=== PATIENT | female | born 1975 | race African-American/Black ===

== ENCOUNTER 2023-02-13 17:10 | Observation (INO) | payer MEDICAID, SELFPAY ==
[2023-02-13] VITALS (11 sets, daily range): BP systolic 139–173; BP diastolic 87–99; PULSE 74–94; RESP 16–20; TEMP 36.1–36.8; O2SAT 99–100; BMI 38.6
--- NOTE | ~2023-02-13 | CT_ITS ---
EXAMINATION: CT chest abdomen pelvis w con DATE: 02/13/2023 22:55 INDICATION: Chest pain. TECHNIQUE: Computed tomography (CT) of the chest, abdomen, and pelvis was performed with 100 mL Omnip aque 350 intravenous contrast. Automated exposure control and iterative reconstruction technique were employed. The dose-length product was 1216.46 mGy-cm. COMPARISON: None FINDINGS: CHEST CT: The lungs demonstrate mild atelectasis. No pleural effusion. The heart size is normal. There are ashley nary artery calcifications. No pericardial effusion. There is an 8 mm nodule in the thyroid, likely n ot clinically significant. There is mild thoracic spondylosis. ABDOMEN/PELVIS CT: The liver is normal. There are wall calcifications of the gallbladder, which is normal in size. The s pleen, pancreas, and adrenal glands are normal. There is cortical thinning of the kidneys. There is a n 8 mm cyst in left kidney. There is an intrauterine device in expected position. There are no dilate d loops of bowel. The appendix is normal. Aortic atherosclerosis is noted. There are no pathologicall y enlarged lymph nodes. There is no free intraperitoneal fluid. There is mild lumbar spondylosis. IMPRESSION: 1. Porcelain gallbladder. Reviewed, dictated and finalized at location A. IMPRESSION: 1. Porcelain gallbladder.
--- NOTE | ~2023-02-13 | XR_ITS ---
EXAMINATION: XR chest 2V DATE: 02/13/2023 17:44 INDICATION: Chest pain. Shortness of breath. TECHNIQUE: Frontal and lateral views of the chest were obtained. COMPARISON: Chest 2 views 11/09/2016 FINDINGS: The chest demonstrates clear lungs without pneumonia, pleural effusion, or pneumothorax. Th e heart size is normal. IMPRESSION: 1. No acute cardiopulmonary disease. Reviewed, dictated and finalized at location E.
--- NOTE | 2023-02-13 17:11 | ECG_ITS ---
Measurements Intervals [place] Rate: 86 P: 48 [place]: 131 QRS: 42 QRSD: 76 T: 132 QT: 352 QTc: 422 Interpretive Statements SINUS RHYTHM LEFT ATRIAL ENLARGEMENT MODERATE T-WAVE ABNORMALITY, CONSIDER LATERAL ISCHEMIA ABNORMAL ECG NO PREVIOUS ECG AVAILABLE FOR COMPARISON Electronically Signed On 02-14-2023 15:33:52 CDT by Caleb Woods M.D.
[2023-02-13 18:02] LABS: Basophils Absolute Auto 0.1 K/mm3 (0.0-0.1); Basophils Percent Auto 0.7 % (0.2-1.2); Eosinophils Absolute Auto 0.1 K/mm3 (0-0.3); Hematocrit 37.4 % (37.0-47.0); Hemoglobin 12.7 g/dL (12.0-15.0); Immature Granulocyte Absolute 0.01 K/mm3 (0.00-0.031); Immature Granulocyte Percent A 0.1 % (0-0.5); Lymphocytes Absolute Auto 2.19 K/mm3 (0.9-3.2); Lymphocytes Percent Auto 30.6 % (18.3-44.2); Mean Corpuscular Hemoglobin 34.2 pg (26-34); Mean Corpuscular Volume 100.8 fl (80-100); Mean Platelet Volume 9.8 fl (7.4-10.4); Monocytes Absolute Auto 0.4 K/mm3 (0.1-0.6); Neutrophils Absolute Auto 4.4 K/mm3 (1.3-6.7); Neutrophils Percent Auto 61.6 % (45.5-73.1); Platelet Count Result 333 k/mm3 (150-375); Red Blood Count 3.71 M/mm3 (4.2-5.4); Red Cell Distribution Width 13.2 % (11.5-14.5); White Blood Count 7.2 K/mm3 (4.5-10.0)
--- NOTE | 2023-02-13 18:02 | ED.CHESTPAIN ---
HPI - Chest Pain General Chief Complaint: Chest Pain <Loulou Estrada PA-C - Last Filed: 02/13/23 19:52> Stated Complaint: chest pain <Loulou Estrada PA-C - Last Filed: 02/13/23 19:52> Time Seen by Provider: 02/13/23 17:32 <Loulou Estrada PA-C - Last Filed: 02/13/23 19:52> History of Present Illness HPI narrative: 47-year-old female with a history of NM, TIA, hypertension, atrial fibrillation chronically anticoagulated with dabigatran, valvulopathy reports for evaluation for chest pain since yesterday. Patient reports the chest pain is sharp in nature overlying her left chest wall and intermittent. Reports it lasts approximately 1 minute and then spontaneously resolves, then occurs again in 3 minutes. Reports at times it radiates to her left jaw and is associated with nausea. Last night reports she had diaphoresis with chest pain. She denies aggravating or alleviating factors. Denies cough, congestion, headache or dizziness, focal numbness or weakness, lower extremity edema. Denies history of stents or CABG. States that her chest wall hurts worse when you push on it, but this is how she presented when she had her past NM. States her brother at the age of 27 from an NM. Reports she was hospitalized in November for a CHF exacerbation. She is currently traveling from [place]. She has been taking Tylenol without relief. <Loulou Estrada PA-C - Last Filed: 02/13/23 19:52> Related Data Home Medications: Home Medications Medication Instructions Recorded Confirmed albuterol sulfate 90 mcg/actuation 2 puff inhalation QID PRN 02/13/23 02/13/23 aerosol inhaler Shortness Of Breath Or Wheezing carvedilol 25 mg tablet (Coreg) 25 mg PO BID 02/13/23 02/13/23 dabigatran etexilate 150 mg 150 mg PO BID 02/13/23 02/13/23 capsule (Pradaxa) diltiazem HCl 240 mg 240 mg PO DAILY 02/13/23 02/13/23 capsule,extended release 24 hr ergocalciferol (vitamin D2) 50,000 50,000 unit PO WEEKLY 02/13/23 02/13/23 unit tablet escitalopram oxalate 20 mg tablet 20 mg PO DAILY 02/13/23 02/13/23 furosemide 40 mg tablet (Lasix) 40 mg PO DAILY 02/13/23 02/13/23 gabapentin 300 mg capsule 300 mg PO BID 02/13/23 02/13/23 lamotrigine 100 mg tablet 300 mg PO DAILY 02/13/23 02/13/23 (Lamictal) lorazepam 0.5 mg tablet 0.5 mg PO TID PRN Anxiety 02/13/23 02/13/23 olmesartan 40 mg tablet 40 mg PO DAILY 02/13/23 02/13/23 omeprazole 20 mg tablet,delayed 20 mg PO DAILY 02/13/23 02/13/23 release ondansetron HCl 8 mg tablet 8 mg PO Q12H PRN Nausea And 02/13/23 02/13/23 Vomiting potassium chloride 20 mEq 20 meq PO DAILY 02/13/23 02/13/23 tablet,extended release prochlorperazine maleate 5 mg 5 mg PO Q8H PRN Nausea 02/13/23 02/13/23 tablet spironolactone 25 mg tablet 25 mg PO DAILY 02/13/23 02/13/23 trazodone 50 mg tablet 50 mg PO HS 02/13/23 02/13/23 <Loulou Estrada PA-C - Last Filed: 02/13/23 19:52> Allergies/Adverse Reactions: Allergies Allergy/AdvReac Type Severity Reaction Status Date / Time ibuprofen Allergy Nausea and Verified 02/13/23 17:56 Vomiting tramadol Allergy Nausea and Verified 02/13/23 17:56 Vomiting <Loulou Estrada PA-C - Last Filed: 02/13/23 19:52> Review of Systems Review of Systems: CONSTITUTIONAL: Denies fever, chills EYES: Denies visual changes, redness, or discharge. ENT: Denies rhinorrhea, congestion, sore throat, or otalgia. CARDIOVASCULAR: See HPI. RESPIRATORY: Denies cough or dyspnea. GASTROINTESTINAL: Denies abdominal pain, vomiting, or diarrhea. GENITOURINARY: Denies dysuria or hematuria. SKIN: Denies rash or itching. MUSCULOSKELETAL: Denies back pain, joint pain, or myalgia. NEUROLOGIC: Denies headache, numbness, dizziness, or weakness. PSYCHIATRIC: Denies anxiety or depression. <Loulou Estrada PA-C - Last Filed: 02/13/23 19:52> [facility] Social History Social History: Social History (Reviewed 02/13/23 @ 18:08 by Loulou Estrada PA
[2023-02-13 18:12] LABS: INR 1.1; Prothrombin Time 14.8 Seconds (11.1-14.7)
[2023-02-13 18:13] LABS: Partial Thromboplastin Time 39.9 SECONDS (22.3-36.8)
[2023-02-13] MEDS: ONDANSETRON INJ 4 MG/2 ML VIAL IV PUSH (18:17)
[2023-02-13] MEDS: MORPHINE SULFATE (*CRX) 4 MG/ML INJ IV PUSH ×3 (18:17→20:40)
[2023-02-13] MEDS: ASPIRIN 81 MG CHEWABLE TABLET 324 MG PO (18:17)
[2023-02-13 18:27] LABS: Appearance Urine Clear (Clear); Bacteria Urine None Seen /hpf; Bilirubin Urine Negative (Negative); Blood Urine Trace (Negative); Color Urine Yellow (Yellow); Glucose Urine UA Negative (Negative); Ketones Urine Trace mg/dL (Negative); Leukocyte Esterase Ur Trace LEU/UL (Negative); Nitrate Urine Negative (Negative); Non Pathogenic Casts 0-2; Protein Urine Negative (Negative); Specific Grav Ur 1.019 (1.001-1.035); Squamous Epithelial Cell Urine Occasional /hpf (Few); WBC Urine 0-5 /hpf
[2023-02-13 18:32] LABS: Alanine Aminotransferase 35 U/L (6-35); Albumin Level 4.6 g/dL (3.5-5.1); Alkaline Phosphatase 58 U/L (38-126); Anion Gap 3 mmol/L (8-16); Aspartate Amino Transferase 35 U/L (14-36); Bilirubin,Total 0.5 mg/dL (0.2-1.3); Blood Urea Nitrogen 6 mg/dL (7-17); Calcium 9.1 mg/dL (8.4-10.2); Carbon Dioxide 27 mmol/L (22-30); Chloride 105 mmol/L (98-107); Estimated CRCL calculation 71 ml/min; Estimated Glomerular Filt Rate > 60; Glucose 108 mg/dL (65-110); Lipase 401 U/L (23-300); Potassium 3.9 mmol/L (3.4-5.0); Sodium 135 mmol/L (137-145)
[2023-02-13 18:36] LABS: NT Pro B Type Natriuretic Pept < 20 pg/mL (19.9-100)
[2023-02-13 18:44] LABS: Troponin I < 0.012 ng/mL (0.000-0.034)
[2023-02-13 18:53] LABS: Add Urine Microscopic? YES
--- NOTE | 2023-02-13 19:34 | PM.IMHP ---
H&P: HPI History of Present Illness Date/Time: 02/13/23 19:34 Chief Complaint: chest pain Narrative: This is a 47-year-old female with past medical history significant for congestive heart failure, hypertension, asthma, atrial fibrillation , tobacco dependence. patient is visiting her family she is from [place] came in a long car ride has been having chest pain in the precordial area with radiation to the neck for the last several hours received several nitro some morphine with no relieve. Patient denies any vomiting however had nausea and some lightheadedness states that nitroglycerin gives her a terrible headache and she rather not take it, denies any fevers, rigors, chills, leg swelling, no PND no orthopnea. preliminary workup has been essentially nonrevealing. Patient is been Placed to observation for further evaluation management and treatment. EXAMINATION: XR chest 2V DATE: 02/13/2023 17:44 INDICATION: Chest pain. Shortness of breath. TECHNIQUE: Frontal and lateral views of the chest were obtained. COMPARISON: Chest 2 views 11/09/2016 FINDINGS: The chest demonstrates clear lungs without pneumonia, pleural effusion, or pneumothorax. The heart size is normal. IMPRESSION: 1. No acute cardiopulmonary disease. EXAMINATION: CT chest abdomen pelvis w con DATE: 02/13/2023 22:55 INDICATION: Chest pain. TECHNIQUE: Computed tomography (CT) of the chest, abdomen, and pelvis was performed with 100 mL Omnipaque 350 intravenous contrast. Automated exposure control and iterative reconstruction technique were employed. The dose-length product was 1216.46 mGy-cm. COMPARISON: None FINDINGS: CHEST CT: The lungs demonstrate mild atelectasis. No pleural effusion. The heart size is normal. There are coronary artery calcifications. No pericardial effusion. There is an 8 mm nodule in the thyroid, likely not clinically significant. There is mild thoracic spondylosis. ABDOMEN/PELVIS CT: The liver is normal. There are wall calcifications of the gallbladder, which is normal in size. The spleen, pancreas, and adrenal glands are normal. There is cortical thinning of the kidneys. There is an 8 mm cyst in left kidney. There is an intrauterine device in expected position. There are no dilated loops of bowel. The appendix is normal. Aortic atherosclerosis is noted. There are no pathologically enlarged lymph nodes. There is no free intraperitoneal fluid. There is mild lumbar spondylosis. IMPRESSION: 1. Porcelain gallbladder. ekg Rate 71 [place] 141 QRSd 69 QT 376 QTc 411 --[place]-- P 48 QRS 35 T 134 SINUS RHYTHM POSSIBLE LEFT ATRIAL ENLARGEMENT [-0.1mV P WAVE IN V1/V2] MODERATE T-WAVE ABNORMALITY, CONSIDER LATERAL ISCHEMIA [-0.1+ mV T WAVE IN I/aVL/V5/V6] COMPARED TO ECG 02/13/2023 17:21:22 NO SIGNIFICANT CHANGES Review of Systems Review of Systems: chest pain Constitutional: Constitutional: Denies chills, Denies fatigue, Denies fever(s), Reports headache(s), Denies malaise, Denies night sweats and Denies weakness Eyes: Eyes: Denies change in vision ENT: Denies dysphagia, Denies vertigo, Denies dizziness and Denies odynophagia Cardiovascular: Cardiovascular: Reports chest pain, Reports chest pain at rest, Denies leg edema, Reports lightheadedness, Reports radiating jaw, neck or arm pain, Denies palpitations and Denies dyspnea Respiratory: Respiratory: Denies chest congestion, Denies cough, Denies excessive phlegm production and Denies pain on inspiration Gastrointestinal: Gastrointestinal: Denies abdominal pain, Denies dyspepsia, Denies heartburn, Denies diarrhea, Reports nausea and Denies vomiting Genitourinary: Genitourinary: Denies dysuria and Denies flank pain Musculoskeletal: Musculoskeletal: Denies back pain, Denies arthralgias and Denies joint swelling Integumentary/Breasts: Skin/Breast: Denies rash Neurologic: Denies vertigo, Denies dizziness, Denies focal weakness and Denies Sensory deficit (Neuro) Psychiatric: Psy
--- NOTE | 2023-02-13 20:33 | ECG_ITS ---
Measurements Intervals [place] Rate: 71 P: 48 [place]: 141 QRS: 35 QRSD: 69 T: 134 QT: 376 QTc: 411 Interpretive Statements SINUS RHYTHM BASELINE ARTIFACT POSSIBLE LEFT ATRIAL ENLARGEMENT MODERATE T-WAVE ABNORMALITY, CONSIDER LATERAL ISCHEMIA ABNORMAL ECG COMPARED TO ECG 02/13/2023 17:21:22 NO SIGNIFICANT CHANGES Electronically Signed On 02-14-2023 15:35:50 CDT by Caleb Woods M.D.
[2023-02-13] MEDS: NITROGLYCERIN SL 0.4 MG TABLET SUBLINGUAL ×2 (20:38→20:43)
[2023-02-13 21:10] LABS: Troponin I < 0.012 ng/mL (0.000-0.034)
[2023-02-13] MEDS: ACETAMINOPHEN 325 MG TABLET 650 MG PO (21:42)
--- NOTE | 2023-02-13 21:42 | PC.NURSE ---
Patient unrelieved chest pain 8/10 post morphine and Nitro SL. Dr. Goldstein notified, no change in EKG. Troponin x2 negative. Dr. Kendall notified/consulted. Dr. Kendall suggests CT Chest. Dr. Goldstein notified. Dr. Goldstein order stat CT Chest, ABD & Pelvis with contrast.
--- NOTE | 2023-02-13 21:59 | ADMGEN ---
This patient, Josue Barroso, was admitted to IMU Room 209-. Patient/family oriented to hospital policies and general routines including ID bracelet, bed and alarms, visiting hours, pain management, procedures, bathroom and other care routines, personal items, smoking policy, room service/diet, and visiting hours. Information on how to activate the Rapid Response Team has been discussed. Patient/Family are encouraged to report perceived risks to care and to ask questions if they do not understand what they are told or what they should do.
[2023-02-14] VITALS (17 sets, daily range): BP systolic 113–142; BP diastolic 54–89; PULSE 62–85; RESP 16–20; TEMP 36.5–36.9; O2SAT 93–100
[2023-02-14] MEDS: MORPHINE SULFATE (*CRX) 4 MG/ML INJ IV PUSH ×6 (00:24→20:24)
[2023-02-14] MEDS: LORazepam (*CRX) 0.5 MG TABLET PO (00:24)
[2023-02-14] MEDS: carvediloL 25 MG TABLET PO ×3 (00:24→20:26)
[2023-02-14] MEDS: DABIGATRAN ETEXILATE 150 MG CAPSULE PO ×3 (00:42→20:27)
[2023-02-14] MEDS: ISOSORBIDE MONONITRATE 30 MG TAB.ER.24H PO (00:43)
[2023-02-14] MEDS: BELLADONNA ALK/PHENOB ELIX 10 ML, MAG HYDROX/ALUMINUM HYD/SIMETH 30 ML, LIDOCAINE HCL 2... PO (00:47)
[2023-02-14] MEDS: LIDOCAINE HCL 2% VISC SOLN 15 ML UDC (00:47)
[2023-02-14] MEDS: MAG HYDROX/AL HYDROX/SIMETH 30 ML UDC (00:47)
[2023-02-14 01:21] LABS: NT Pro B Type Natriuretic Pept < 20 pg/mL (19.9-100); Troponin I < 0.012 ng/mL (0.000-0.034)
[2023-02-14] MEDS: dilTIAZem HCL CD 240 MG CAP.24HR PO (08:45)
[2023-02-14] MEDS: lamoTRIgine 100 MG TABLET PO ×2 (08:45→20:25)
[2023-02-14] MEDS: PANTOPRAZOLE 40 MG TABLET PO (08:46)
[2023-02-14] MEDS: OLMESARTAN MEDOXOMIL 20 MG TABLET 40 MG PO (08:46)
[2023-02-14] MEDS: ESCITALOPRAM OXALATE 10 MG TABLET 20 MG PO (08:46)
[2023-02-14] MEDS: lamoTRIgine 50 MG TABLET PO ×2 (08:46→20:25)
--- NOTE | 2023-02-14 08:48 | PM.IMPN ---
Progress Note: A&P Assessment and Plan (1) Chest pain: Code(s): R07.9 - Chest pain, unspecified Status: Acute (2) HTN (hypertension): Code(s): I10 - Essential (primary) hypertension Status: Acute (3) Atrial fibrillation: Code(s): I48.91 - Unspecified atrial fibrillation Status: Acute (4) Congestive heart failure: Code(s): I50.9 - Heart failure, unspecified Status: Acute (5) Coronary artery disease: Code(s): I25.10 - Atherosclerotic heart disease of [place] coronary artery without angina pectoris Status: Acute Plan 47-year-old female with history of SD TIA hypertension atrial fibrillation chronically anticoagulated with dabigatran valvulopathy presented with chest pain. Chest pain is located in left chest wall intermittent last approximately 1 minute sometimes radiates to her left jaw associated with nausea and diaphoresis. He has significant family history of premature coronary artery disease. Currently traveling from [place]. Declined nitro due to history of severe headache when received 1. IV morphine was given. lipase elevated at 401. Serial troponin has been negative. BNP less than 20. All other labs unremarkable. Chest x-ray with no acute cardiopulmonary disease. CT chest abdomen pelvis with porcelain gallbladder. EKG with nonspecific ST-T changes in lateral leads. No prior EKG to compare. Repeat EKG with no dynamic changes. Cardiology has been consulted. Await his recommendations. Resume home medication for hypertension atrial fibrillation is rate controlled With carvedilol and diltiazem and anticoagulated. need to follow-up with general surgery for her porcelain gallbladder for elective cholecystectomy. Subjective Date/time seen: 02/14/23 08:48 Interval history: 47-year-old female with history of SD TIA hypertension atrial fibrillation chronically anticoagulated with dabigatran valvulopathy presented with chest pain. Chest pain is located in left chest wall intermittent last approximately 1 minute sometimes radiates to her left jaw associated with nausea and diaphoresis. He has significant family history of premature coronary artery disease. Currently traveling from [place]. Declined nitro due to history of severe headache when received 1. IV morphine was given. lipase elevated at 401. Serial troponin has been negative. BNP less than 20. All other labs unremarkable. Chest x-ray with no acute cardiopulmonary disease. CT chest abdomen pelvis with porcelain gallbladder. EKG with nonspecific ST-T changes in lateral leads. No prior EKG to compare. Repeat EKG with no dynamic changes. Cardiology has been consulted. Resume home medication for hypertension atrial fibrillation is rate controlled With carvedilol and diltiazem and anticoagulated. Review of Systems Review of Systems: All systems reviewed & are unremarkable except as noted in HPI and below Exam Narrative: GENERAL: Well-appearing, in no acute distress.? HEAD: Normocephalic EYES: PERRLA, EOMI ENT: Nares clear.? Mucous membranes moist.? NECK: Supple.? CHEST:? No respiratory distress. Clear to auscultation, no adventitious breath sounds.? Tenderness to palpation of left anterior chest wall HEART: Regular rate and rhythm.? No murmur heard.? Normal peripheral pulses. ABDOMEN: Soft, nontender, normal active bowel sounds. EXTREMITIES: Normal range of motion.? No edema. SKIN: Warm, dry, no rash. NEURO: No focal deficits.? Alert and oriented x3.? Cranial nerves II through XII intact.? Strength 5 out of 5 in bilateral upper and lower extremities.? Sensation intact throughout. PSYCH: Normal mood and affect. Objective Data Vital Signs Vital Signs: Vital Signs - 24 hr 02/13/23 17:32 02/13/23 17:32 02/13/23 17:37 Temperature 98.3 F 98.0 F Pulse Rate 83 83 83 Respiratory Rate 16 20 Blood Pressure 153/99 H 173/89 H Pulse Oximetry 100 100 Oxygen Delivery Room Air Room Air
[2023-02-14 10:43] LABS: Lipase 205 U/L (23-300)
--- NOTE | 2023-02-14 11:17 | PM.CNCAR ---
Assessment and Plan Assessment and plan (1) Chest pain: Qualifiers: Chest pain type: other chest pain Qualified Code(s): R07.89 - Other chest pain Code(s): R07.9 - Chest pain, unspecified Status: Acute Assessment and Plan: Atypical constant chest pain reproducible to palpation left anterior chest wall for the past 48 hours without for myocardial infarction with negative serial troponin and no new acute ischemic ECG changes most likely noncardiac etiology most likely musculoskeletal. Patient intolerant to nitrates without improvement. She is also intolerant to NSAIDs as he reports. ECG nor exam are suggestive of pericarditis although discussed this at length. Discussed multiple etiologies in contribution to chest pain. I do not have documentation of prior CAD although patient reports a remote coronary angiogram approximately 16 years ago although details are not available. She reports an unremarkable stress test over the past couple of months with her bilingual teacher in [place] including echocardiogram. Pain management per primary service. Will review prior cardiac records with recommendations to follow. We discussed desire to avoid unnecessary duplication of cardiac workup. There is no clear indication that coronary angiography would be beneficial in this regard furthermore she would require discontinuation of systemic anticoagulation for least 48 hours prior to proceeding. We discussed the relative risks and benefits in this regard given atypical, reproducible nature of her symptoms and negative serial troponins at this time risks of invasive angiography would appear to outweigh benefit. Continue to monitor on telemetry. We discussed this at length. All questions answered to her satisfaction. Should she have new ECG changes, troponin elevation, or other high risk clinical feature invasive angiography may be considered. Patient verbalized understanding and agreed with this plan of care. CT chest with contrast revealed coronary calcifications. Add statin therapy with goal LDL less than 72 given patient's self reported history of TIA. Check lipid panel. Check ESR, CRP. Repeat 12 lead ECG and troponin. (2) Atrial fibrillation: Qualifiers: Atrial fibrillation type: paroxysmal Qualified Code(s): I48.0 - Paroxysmal atrial fibrillation Code(s): I48.91 - Unspecified atrial fibrillation Status: Acute Assessment and Plan: Maintaining sinus rhythm on diltiazem 240 mg daily and carvedilol 25 mg twice daily. BP and heart rate stable. Avoid symptomatic hypotension and/or bradycardia. Continue Pradaxa 150 mg twice daily for a follicle stroke risk reduction. Monitor bleeding. Follow H&H. (3) Congestive heart failure: Qualifiers: Heart failure type: diastolic Heart failure chronicity: chronic Qualified Code(s): I50.32 - Chronic diastolic (congestive) heart failure Code(s): I50.9 - Heart failure, unspecified Status: Acute Assessment and Plan: Patient is compensated. Continue furosemide 40 mg daily and spironolactone 25 mg daily. Patient preserved EF by stress echocardiogram December 2020 upon personal review of outside record from my chart/epic on her personal cell phone as she handed to me for review. Additional records have been requested and will be reviewed when available. ProBNP<20, chest x-ray without acute pulmonary vascular congestion or infiltrate. (4) HTN (hypertension): Qualifiers: Hypertension type: primary hypertension Qualified Code(s): I10 - Essential (primary) hypertension Code(s): I10 - Essential (primary) hypertension Status: Acute Assessment and Plan: Continue diltiazem 240 mg daily, carvedilol 25 mg twice daily, almost heart in 40 mg daily, spironolactone 25 mg daily. BP reasonably controlled at this time although elevated at presentation. (5) Tobacco abuse: Code(s): Z72.0 - Tobacco use Status
[2023-02-14] MEDS: GABAPENTIN 300 MG CAPSULE PO ×2 (11:28→16:56)
[2023-02-14] MEDS: SPIRONOLACTONE 25 MG TABLET PO (11:28)
--- NOTE | 2023-02-14 13:21 | ECHO_ITS ---
Patient Info Name: Josue Barroso Age: 47 years : 1975 Gender: Female Ht: 62 in Wt: 211 lbs BSA: 2.10 m2 HR: 64 bpm BP: 115 / 54 mmHg Heart Rhythm: Sinus Rhythm Technical Quality: Fair Exam Date: 02/14/2023 3:18 PM Exam Location: [facility] Patient Status: Outpatient Admit Date: 02/13/2023 Staff Ordering Physician: Caleb Woods MD Senior Engineering Associate: Crsis Medina RDCS Attending Provider: Melvin Goldstein MD Referring Physician: Peggy JOHNSON; Exam Type: CA echo doppler color flow Study Info Indications R07.9 - Chest pain, unspecified Complete two-dimensional, color flow and Doppler transthoracic echocardiogram is performed. Summary 1. Complete two-dimensional, color flow and Doppler transthoracic echocardiogram is performed. 2. Mild pulmonary hypertension, estimated pulmonary arterial systolic pressure is 36mmHg. 3. Left ventricular chamber dimension is normal. 4. Left ventricular systolic function is normal, estimated at 65-70%. 5. There is no increased left ventricular wall thickness. 6. The left ventricular diastolic function is grade I diastolic dysfunction. 7. There is no aortic valve stenosis. 8. There is trace mitral valve regurgitation. 9. There is mild tricuspid valve regurgitation. Left Ventricle Left ventricular chamber dimension is normal. Left ventricular systolic function is normal, estimated at 65-70%. There is no increased left ventricular wall thickness. The left ventricular diastolic function is grade I diastolic dysfunction. Right Ventricle Right ventricular chamber dimension is normal. Right ventricular systolic function is normal. Left Atria Left atrial chamber dimension is mildly enlarged. Right Atria Right atrial chamber dimension is normal. Aortic Valve The aortic valve is trileaflet. There is no aortic valve stenosis. There is no aortic valve regurgitation. Pulmonic Valve The pulmonic valve is normal. There is trace pulmonic regurgitation. Mitral Valve The mitral valve has normal leaflets. There is trace mitral valve regurgitation. The mitral valve annulus is mildly calcified. Tricuspid Valve Mild pulmonary hypertension, estimated pulmonary arterial systolic pressure is 36mmHg. The tricuspid valve leaflets are normal. There is mild tricuspid valve regurgitation. Pericardium/Pleural The pericardium appears normal. There is trivial pericardial effusion. Inferior Vena Cava Normal inferior vena cava with >50% collapse upon inspiration consistent with normal right atrial pressure, 5 mmHg. Aorta The aortic root size at the sinus of Valsalva is normal. Left Ventricular Outflow Tract Name Value Normal LVOT 2D LVOT Diameter 1.9 cm LVOT Doppler LVOT Peak Gradient 5 mmHg LVOT Mean Gradient 3 mmHg LVOT VTI 28 cm LVOT VTI/AV VTI Ratio 1.0 LVOT Stroke Volume 79 ml LVOT CO 4.6 l/min LVOT CI 2.2 l/min/m2 Pulmonic Valve Name
[2023-02-14 15:00] LABS: Troponin I < 0.012 ng/mL (0.000-0.034)
[2023-02-14 15:13] LABS: Erythrocyte Sedimentation Rate 25 mm/hr (0-20)
[2023-02-14] MEDS: ACETAMINOPHEN 325 MG TABLET 650 MG PO ×2 (15:19→20:22)
[2023-02-14 17:31] LABS: Cholesterol 190 mg/dL (0-200); HDL Direct 32 mg/dL; Triglycerides 140 mg/dL (<150)
[2023-02-14 17:38] LABS: LDL Cholesterol Direct 119 mg/dL
[2023-02-14] MEDS: traZODone HCL 50 MG TABLET PO (20:25)
[2023-02-15 04:41] VITALS: BP 130/78; PULSE 66; RESP 20; TEMP 36.3; O2SAT 99
[2023-02-15] MEDS: MORPHINE SULFATE (*CRX) 4 MG/ML INJ IV PUSH (06:06)
[2023-02-15] MEDS: ACETAMINOPHEN 325 MG TABLET 650 MG PO (06:07)
[2023-02-15 08:00] VITALS: BP 148/108; PULSE 78; RESP 19; TEMP 36.4; O2SAT 100
[2023-02-15 08:23] VITALS: O2SAT 96
[2023-02-15 08:55] VITALS: PULSE 89
[2023-02-15] MEDS: GABAPENTIN 300 MG CAPSULE PO (08:55)
[2023-02-15] MEDS: carvediloL 25 MG TABLET PO (08:55)
[2023-02-15] MEDS: OLMESARTAN MEDOXOMIL 20 MG TABLET 40 MG PO (08:56)
[2023-02-15] MEDS: dilTIAZem HCL CD 240 MG CAP.24HR PO (08:56)
[2023-02-15] MEDS: ESCITALOPRAM OXALATE 10 MG TABLET 20 MG PO (08:56)
[2023-02-15] MEDS: SPIRONOLACTONE 25 MG TABLET PO (08:56)
[2023-02-15] MEDS: lamoTRIgine 50 MG TABLET PO (08:56)
[2023-02-15] MEDS: PANTOPRAZOLE 40 MG TABLET PO (08:56)
[2023-02-15] MEDS: DABIGATRAN ETEXILATE 150 MG CAPSULE PO (08:56)
[2023-02-15] MEDS: lamoTRIgine 100 MG TABLET PO (08:56)
[2023-02-15] MEDS: HYDROcodone/acetaminophen (*CRX) 7.5-325 MG TABLET 1 TAB PO (09:38)
--- NOTE | 2023-02-15 11:41 | PM.PNCARD ---
Progress Note: A&P Assessment and Plan (1) Chest pain: Qualifiers: Chest pain type: other chest pain Qualified Code(s): R07.89 - Other chest pain Code(s): R07.9 - Chest pain, unspecified Status: Acute Assessment and Plan: Atypical constant chest pain reproducible to palpation left anterior chest wall for the past 48 hours without for myocardial infarction with negative serial troponin and no new acute ischemic ECG changes. Doubt cardiac etiology, most likely musculoskeletal. Pain management per primary service Reviewed records from telephone collector in [place]. Negative nuclear stress test with normal EF. CT chest with contrast revealed coronary calcifications. Add statin therapy with goal LDL less than 72 given patient's self reported history of TIA. Repeat trop negative OK for discharge today from a cardiac perspective (2) Atrial fibrillation: Qualifiers: Atrial fibrillation type: paroxysmal Qualified Code(s): I48.0 - Paroxysmal atrial fibrillation Code(s): I48.91 - Unspecified atrial fibrillation Status: Acute Assessment and Plan: Maintaining sinus rhythm on diltiazem 240 mg daily and carvedilol 25 mg twice daily. BP and heart rate stable. Avoid symptomatic hypotension and/or bradycardia. Continue Pradaxa 150 mg twice daily for a follicle stroke risk reduction. Monitor bleeding. Follow H&H. (3) Congestive heart failure: Qualifiers: Heart failure chronicity: chronic Heart failure type: diastolic Qualified Code(s): I50.32 - Chronic diastolic (congestive) heart failure Code(s): I50.9 - Heart failure, unspecified Status: Acute Assessment and Plan: Patient is compensated. Continue furosemide 40 mg daily and spironolactone 25 mg daily. Patient preserved EF by stress echocardiogram December 2020 upon personal review of outside record from my chart/[employer] on her personal cell phone as she handed to me for review. Additional records have been requested and will be reviewed when available. ProBNP<20, chest x-ray without acute pulmonary vascular congestion or infiltrate. (4) HTN (hypertension): Qualifiers: Hypertension type: primary hypertension Qualified Code(s): I10 - Essential (primary) hypertension Code(s): I10 - Essential (primary) hypertension Status: Acute Assessment and Plan: Continue diltiazem 240 mg daily, carvedilol 25 mg twice daily, almost heart in 40 mg daily, spironolactone 25 mg daily. BP reasonably controlled at this time although elevated at presentation. (5) Tobacco abuse: Code(s): Z72.0 - Tobacco use Status: Acute Assessment and Plan: Strongly encouraged immediate and absolute smoking cessation. Patient states she is actively cutting down and and attempting to quit. She verbalized understanding and agreed. Smoking cessation aids as appropriate. (6) Chronic anticoagulation: Code(s): Z79.01 - roasterman (current) use of anticoagulants Status: Acute Assessment and Plan: Resume systemic anticoagulation with Pradaxa 150 mg twice daily given history of paroxysmal atrial fibrillation. No evidence for acute bleed complication. H&H stable, platelet count 333. Subjective Date/time seen: 02/15/23 11:41 Interval history: Cardiology follow up for chest pain She is still having constant chest pain that is relieved with pain medication. No other complaints this morning. Review of Systems Review of Systems: Remainder of the review of systems is otherwise negative aside from that noted in the HPI. All systems reviewed & are unremarkable except as noted in HPI and below Constitutional: Constitutional: Reports as per HPI and Reports no additional constitutional complaints Eyes: Eyes: Reports as per HPI and Reports no additional eye complaints ENT: Reports system reviewed and no additional complaints, except as documented and Reports as per HPI Cardiov
--- NOTE | 2023-02-15 14:44 | PM.DS ---
DS: Admitting Diagnosis Discharge Date 02/15/2023 Admitting Diagnosis Chest pain DS: Discharge Diagnosis Discharge Diagnosis (1) Chest pain: Qualifiers: Chest pain type: other chest pain Qualified Code(s): R07.89 - Other chest pain Code(s): R07.9 - Chest pain, unspecified Status: Acute (2) HTN (hypertension): Qualifiers: Hypertension type: primary hypertension Qualified Code(s): I10 - Essential (primary) hypertension Code(s): I10 - Essential (primary) hypertension Status: Acute (3) Atrial fibrillation: Qualifiers: Atrial fibrillation type: paroxysmal Qualified Code(s): I48.0 - Paroxysmal atrial fibrillation Code(s): I48.91 - Unspecified atrial fibrillation Status: Acute (4) Congestive heart failure: Qualifiers: Heart failure type: diastolic Heart failure chronicity: chronic Qualified Code(s): I50.32 - Chronic diastolic (congestive) heart failure Code(s): I50.9 - Heart failure, unspecified Status: Acute (5) Coronary artery disease: Code(s): I25.10 - Atherosclerotic heart disease of [place] coronary artery without angina pectoris Status: Acute DS: Summary Hospital Course Hospital Course: ?47-year-old female with history of [place] TIA hypertension atrial fibrillation chronically anticoagulated with dabigatran valvulopathy presented with chest pain.? Chest pain is located in left chest wall intermittent last approximately 1 minute sometimes radiates to her left jaw associated with nausea and diaphoresis.? He has significant family history of premature coronary artery disease.? Currently traveling from [place].? Declined nitro due to history of severe headache when received 1.? IV morphine was given. lipase elevated at 401.? Repeat was normal. She was admitted for chest pain rule out. Initial troponin was negative. Serial troponin has been negative.? BNP less than 20.? All other labs unremarkable.? Chest x-ray with no acute cardiopulmonary disease.? 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 EKG with nonspecific ST-T changes in lateral leads. ? No prior EKG to compare. Repeat EKG with no dynamic changes.? Cardiology has been consulted. CT chest with contrast did reveal coronary calcification a and 18 goal less 70 will initiate statin. ?Previous workup reviewed she had a stress test done on 05/2022 which was negative. Echo was done here which was unremarkable. Patient chest pain most likely noncardiac and likely not related to her left shoulder/rotator cuff. Steroid treatment discussed as she states she could not do ibuprofen/NSAIDs. Discussed risks and benefits. She is agreeable will order 1. Also on hydrocodone past pain control will limited supply will be provided until she follows up with her primary care. 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 Time Spent with Patient Time attestation: Total time spent providing and/or coordinating discharge services: 45 minutes Exam Narrative: GENERAL: Well-appearing, in no acute distress.? HEAD: Normocephalic EYES: PERRLA, EOMI ENT: Nares clear.? Mucous membranes moist.? NECK: Supple.? CHEST:? No respiratory distress. Clear to auscultation, no adventitious breath sounds.? Tenderness to palpation of left anterior chest wall HEART: Regular rate and rhythm.? No murmur heard.? Normal peripheral pulses. ABDOMEN: Soft, nontender, normal active bowel sounds. EXTREMITIES: Normal range of motion.? No edema. SKIN: Warm, dry, no rash. NEURO: No focal deficits.? Alert and oriented x3.? Cranial nerves II through XII intact.? Strength 5 out of 5 in bilateral upper and lower extremities.? Sensation intact throughout. PSYCH: Normal mood and affect. DS: Data Data Completed and Pending Completed studies during hospitalization: Exam Type: ? ? CA echo doppler color flow Study In
== END 2023-02-15 15:10 | disposition home or self-care (01) ==
LOC: ANHED 18:34 → ANHIMU 02-14 05:11
PROVIDERS: Emergency Medicine; Internal Medicine Cardiovascular Disease; Admitting Provider Internal Medicine; Emergency Provider Physician Assistant; Visit Provider Internal Medicine
DX: R07.89 Other chest pain (principal); I48.91 Unspecified atrial fibrillation; I11.0 Hypertensive heart disease with heart failure; I50.9 Heart failure, unspecified; I25.10 Atherosclerotic heart disease of native coronary artery without angina pectoris; J45.909 Unspecified asthma, uncomplicated; I25.2 Old myocardial infarction; Z86.73 Personal history of transient ischemic attack (TIA), and cerebral infarction without residual deficits; Z79.01 Long term (current) use of anticoagulants; Z79.51 Long term (current) use of inhaled steroids; Z87.891 Personal history of nicotine dependence
CPT/HCPCS: 36415; 71046; 71260; 74177; 80053; 80061; 81001; 83690; 83880; 84484; 85025; 85610; 85652; 85730; 86140; 93005; 93306; 96374; 96375; 96376; 99285; A9270; G0378; J2270; J2405; Q9967

== ENCOUNTER 2023-02-25 07:59 | Inpatient (IN) | payer MEDICAID, SELFPAY ==
[2023-02-25] VITALS (15 sets, daily range): BP systolic 132–167; BP diastolic 92–115; PULSE 70–91; RESP 16–18; TEMP 36.2–36.8; O2SAT 97–100
--- NOTE | ~2023-02-25 | US_ITS ---
US abdomen limited INDICATION: Cholecystitis PROCEDURE: Realtime right upper abdominal ultrasound. COMPARISON: No prior studies for comparison. FINDINGS: The pancreas is normal without focal mass or pancreatic ductal dilation. Liver echotexture is increased, consistent with fatty infiltration. There is normal directional flow in the portal ve in. There are gallstones. Common bile duct measures 3 mm. Positive sonographic Cee's sign. IMPRESSION: 1: Cholelithiasis with positive sonographic Cee's sign, suspicious for cholecystitis. Reviewed, dictated and finalized at location B. IMPRESSION: 1: Cholelithiasis with positive sonographic Cee's sign, suspicious for joya cystitis.
--- NOTE | ~2023-02-25 | CT_ITS ---
EXAMINATION: CT abdomen pelvis w con DATE: 02/25/2023 09:13 INDICATION: Lower abdominal pain TECHNIQUE: Computed tomography (CT) of the abdomen and pelvis was performed with 100 cc Omnipaque 350 intravenous contrast. The dose-length product was 907.50 mGy-cm. Automated exposure control and iter ative reconstruction technique were employed. COMPARISON: CT dated 02/13/2023. FINDINGS: Lung bases are unremarkable. Heart size normal. No significant pleural or pericardial effus ion. There are gallbladder wall calcifications, porcelain gallbladder. The spleen, pancreas, adrenal glands and right kidney are unremarkable. Nonobstructive bowel gas pattern. No significant vascular a bnormality. There is an IUD in the uterus. There is a 3.8 cm left adnexal cyst, likely ovarian. There is a small subcentimeter cyst of the left kidney. No free air or free fluid. No evidence for diverti culitis or appendicitis. Normal appendix. No acute osseous abnormality. IMPRESSION: 1. No acute abdominal abnormality. 2: Porcelain gallbladder. Reviewed, dictated and finalized at location B.
[2023-02-25 08:35] LABS: Basophils Absolute Auto 0.1 K/mm3 (0.0-0.1); Basophils Percent Auto 0.8 % (0.2-1.2); Eosinophils Absolute Auto 0.1 K/mm3 (0-0.3); Eosinophils Percent Auto 0.8 % (0-4.4); Hematocrit 39.2 % (37.0-47.0); Immature Granulocyte Absolute 0.01 K/mm3 (0.00-0.031); Immature Granulocyte Percent A 0.2 % (0-0.5); Lymphocytes Absolute Auto 2.18 K/mm3 (0.9-3.2); Lymphocytes Percent Auto 36.7 % (18.3-44.2); Mean Corpuscular HGB Conc 33.2 g/dl (32-36); Mean Corpuscular Hemoglobin 34.5 pg (26-34); Mean Platelet Volume 10.2 fl (7.4-10.4); Monocytes Absolute Auto 0.5 K/mm3 (0.1-0.6); Monocytes Percent Auto 7.7 % (2.6-8.5); Neutrophils Absolute Auto 3.2 K/mm3 (1.3-6.7); Neutrophils Percent Auto 53.8 % (45.5-73.1); Platelet Count Result 304 k/mm3 (150-375); Red Blood Count 3.77 M/mm3 (4.2-5.4); Red Cell Distribution Width 13.2 % (11.5-14.5); White Blood Count 5.9 K/mm3 (4.5-10.0)
--- NOTE | 2023-02-25 08:38 | ED.ABDPAIN ---
HPI - Abdominal Pain General Chief Complaint: Abdominal Pain Stated Complaint: abdomen and flank pain Time Seen by Provider: 02/25/23 08:38 Source: patient Mode of arrival: ambulatory Limitations: no limitations History of Present Illness HPI narrative: 47 years old -[place] female presents with right abdominal pain, dull aching radiating to right flank area started 1 week ago, intermittent worse with movement, better at rest, been steady over the last 24 hours. She denies any nausea or vomiting, diarrhea or constipation or urinary symptoms, history of hypertension bilateral tubal ligation last menstrual period 1 week ago, patient is actively smoker, denies alcohol or drugs use. No history of abdominal surgery. Related Data Home Medications Medication Instructions Recorded Confirmed albuterol sulfate 90 mcg/actuation 2 puff inhalation QID PRN 02/13/23 02/13/23 aerosol inhaler Shortness Of Breath Or Wheezing carvedilol 25 mg tablet (Coreg) 25 mg PO BID 02/13/23 02/13/23 dabigatran etexilate 150 mg 150 mg PO BID 02/13/23 02/13/23 capsule (Pradaxa) diltiazem HCl 240 mg 240 mg PO DAILY 02/13/23 02/13/23 capsule,extended release 24 hr ergocalciferol (vitamin D2) 50,000 50,000 unit PO WEEKLY 02/13/23 02/13/23 unit tablet escitalopram oxalate 20 mg tablet 20 mg PO DAILY 02/13/23 02/13/23 furosemide 40 mg tablet (Lasix) 40 mg PO DAILY 02/13/23 02/13/23 gabapentin 300 mg capsule 300 mg PO BID 02/13/23 02/13/23 lamotrigine 100 mg tablet 300 mg PO DAILY 02/13/23 02/13/23 (Lamictal) lorazepam 0.5 mg tablet 0.5 mg PO TID PRN Anxiety 02/13/23 02/13/23 olmesartan 40 mg tablet 40 mg PO DAILY 02/13/23 02/13/23 omeprazole 20 mg tablet,delayed 20 mg PO DAILY 02/13/23 02/13/23 release ondansetron HCl 8 mg tablet 8 mg PO Q12H PRN Nausea And 02/13/23 02/13/23 Vomiting potassium chloride 20 mEq 20 meq PO DAILY 02/13/23 02/13/23 tablet,extended release prochlorperazine maleate 5 mg 5 mg PO Q8H PRN Nausea 02/13/23 02/13/23 tablet spironolactone 25 mg tablet 25 mg PO DAILY 02/13/23 02/13/23 trazodone 50 mg tablet 50 mg PO HS 02/13/23 02/13/23 Allergies Allergy/AdvReac Type Severity Reaction Status Date / Time ibuprofen AdvReac Nausea and Verified 02/25/23 08:51 Vomiting tramadol AdvReac Nausea and Verified 02/25/23 08:51 Vomiting Review of Systems Review of Systems: All systems reviewed & are unremarkable except as noted in HPI and below PMFSH Past Medical History Medical History Atrial fibrillation Chest pain Chronic anticoagulation Congestive heart failure HTN (hypertension) Tobacco abuse Social History Social History Smoking status: Former smoker Alcohol intake: never Substance use: never Lack of Transportation: No Lack of Food: Never True Current Housing: I Have Housing Concerned About Future Housing: No Difficulty Paying Gas/Electric Bills: No Difficulty Paying for Meds: No Currently Unemployed: No Education: Decline to Answer Difficulty w/ Childcare or Family Care: No Spiritual care concerns: No Exam Narrative: General appearance: Well-developed, well-nourished Skin: Normal color Head: Normocephalic, nontraumatic Eyes: Clear conjunctiva ENT: Oropharynx normal, ears normal, nose normal Neck: Supple, nontender Chest and respiratory: Airway patent, no respiratory distress, no accessory muscle use Heart: Regular rate/rhythm Abdomen: Soft, severe tenderness right lower quadrant and right upper quadrant, quiet bowel sounds Vascular: Normal peripheral pulses, normal capillary refill. Musculoskeletal: Normal range of motion, nontender back Neurologic: Alert and oriented ?3, PYRIDINE OPERATOR is normal as tested, no gross motor deficit
[2023-02-25 08:47] LABS: Alanine Aminotransferase 46 U/L (6-35); Albumin Level 4.8 g/dL (3.5-5.1); Alkaline Phosphatase 59 U/L (38-126); Anion Gap 8 mmol/L (8-16); Aspartate Amino Transferase 34 U/L (14-36); Bilirubin,Total 0.6 mg/dL (0.2-1.3); Blood Urea Nitrogen 14 mg/dL (7-17); Calcium 9.5 mg/dL (8.4-10.2); Carbon Dioxide 23 mmol/L (22-30); Chloride 102 mmol/L (98-107); Estimated CRCL calculation 74 ml/min; Estimated Glomerular Filt Rate > 60; Glucose 99 mg/dL (65-110); Lipase 216 U/L (23-300); Potassium 4.2 mmol/L (3.4-5.0); Sodium 133 mmol/L (137-145)
[2023-02-25] MEDS: SODIUM CHLORIDE 0.9% IV 1,000 ML 999 ML IV CONT (08:48)
[2023-02-25 08:59] LABS: Appearance Urine Turbid (Clear); Bacteria Urine None Seen /hpf; Bilirubin Urine Negative (Negative); Blood Urine 1+ (Negative); Color Urine Yellow (Yellow); Glucose Urine UA Negative (Negative); Ketones Urine Trace mg/dL (Negative); Leukocyte Esterase Ur 3+ LEU/UL (Negative); Nitrate Urine Negative (Negative); Non Pathogenic Casts 0-2; Protein Urine 1+ mg/dL (Negative); Specific Grav Ur 1.023 (1.001-1.035); Squamous Epithelial Cell Urine None seen /hpf (Few); WBC Urine >100 /hpf; pH Urine 5.5 (5.0-9.0)
[2023-02-25 09:16] LABS: Add Urine Microscopic? YES
[2023-02-25] MEDS: HYDROmorphone HCL INJ (*CRX) 1 MG/ML SYR 0.5 MG IV PUSH ×4 (09:22→16:07)
[2023-02-25] MEDS: ONDANSETRON INJ 4 MG/2 ML VIAL IV PUSH ×3 (09:26→23:37)
[2023-02-25] MEDS: PIPERACILLN/TAZ 3.375GM/NS50ML 3.375 GM/50 ML BAG IVPB ×3 (12:00→23:37)
--- NOTE | 2023-02-25 13:29 | PM.IMHP ---
H&P: HPI History of Present Illness Date/Time: 02/25/23 13:30 Chief Complaint: Abdominal pain. Narrative: This is a 47-year-old female smoker with congestive heart failure, hypertension, paroxysmal atrial fibrillation on anticoagulation, and other comorbidities who presented to the emergency department for evaluation of right-sided abdominal pain. The patient provides the following history. She is known to the hospitalist service from a recent admission about a week and a half ago with left chest wall pain radiating to the left jaw with nausea and diaphoresis. She was seen by Cardiology she ruled out for acute coronary syndrome by serial troponins and no new acute ischemic changes were noted on EKG. Stress [place] done [place] 20[place] of state was reportedly negative. It was felt that her pain was musculoskeletal in etiology. Chest CT with contrast showed coronary calcifications and she was started on high-intensity statin. 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 Several days after discharge she developed right-sided abdominal pain radiating to the right flank, described as a dull ache. It seems to be worse with movement and better with rest. It has been nearly constant for the past 24 hours and she came in for evaluation. She has had similar symptoms in the past but never this severe. She denies fever, chills, sweats, nausea, vomiting, diarrhea, hematuria, and dysuria. CT of the abdomen and pelvis showed no acute abdominal abnormality and once again findings of a porcelain gallbladder. Abdominal ultrasound revealed cholelithiasis with positive sonographic Cee sign suspicious for cholecystitis. She is being admitted in this setting for pain control, IV antibiotics, and surgery consultation. Review of Systems Review of Systems: Twelve systems were reviewed and are negative except for as per HPI. [facility] Past Medical History Medical History (Updated 02/25/23 @ 16:15 by Smitha Galeas PA-C) Chronic anticoagulation Congestive heart failure Echocardiogram in February 2023 showed normal LV chamber dimension and systolic function with an estimated EF of 65 to 70% and grade 1 diastolic dysfunction. Hypertension Paroxysmal atrial fibrillation Tobacco abuse Surgical History Surgical History (Updated 02/25/23 @ 16:11 by Smitha Galeas PA-C) History of cardiac catheterization Negative per patient report. Social History Social History (Updated 02/25/23 @ 16:14 by Smitha Galeas PA-C) Social History: Surrogate medical decision maker: Louise Barroso, mother. Code status: Full code. Smoking status: Current every day smoker Tobacco type: cigarettes Alcohol intake: never Substance use: never Lack of Transportation: No Lack of Food: Never True Current Housing: I Have Housing Concerned About Future Housing: No Difficulty Paying Gas/Electric Bills: No Difficulty Paying for Meds: No Currently Unemployed: No Education: High School Diploma/GED Difficulty w/ Childcare or Family Care: No Spiritual care concerns: No Meds Home Medications and Allergies Home Medications Medication Instructions Recorded Confirmed Type albuterol sulfate 90 mcg/actuation 2 puff inhalation QID PRN 02/13/23 02/25/23 History aerosol inhaler Shortness Of Breath Or Wheezing carvedilol 25 mg tablet (Coreg) 25 mg PO BID 02/13/23 02/25/23 History dabigatran etexilate 150 mg 150 mg PO BID 02/13/23 02/25/23 History capsule (Pradaxa) diltiazem HCl 240 mg 240 mg PO DAILY 02/13/23 02/25/23 History capsule,extended release 24 hr ergocalciferol (vitamin D2) 50,000 50,000 unit PO WEEKLY 02/13/23 02/25/23 History unit tablet escitalopram oxalate 20 mg tablet 20 mg PO DAILY 02/13/23 02/25/23 History furosemide 40 mg tablet (Lasix) 40 mg PO DAILY 02/13/23 02/25/23 History gabapentin 300 mg caps
[2023-02-25] MEDS: LACTATED RINGERS 1,000 ML 150 ML IV CONT ×2 (13:31→21:26)
--- NOTE | 2023-02-25 15:15 | PC.NURSE ---
Pt can not recall her home meds. Mother to bring in medications from home for verification.
[2023-02-25] MEDS: HYDROmorphone HCL INJ (*CRX) 1 MG/ML SYR IV PUSH ×2 (20:58→23:43)
[2023-02-25] MEDS: GABAPENTIN 300 MG CAPSULE PO (23:36)
[2023-02-25] MEDS: carvediloL 25 MG TABLET PO (23:37)
[2023-02-26] MEDS: LACTATED RINGERS 1,000 ML 150 ML IV CONT (04:58)
[2023-02-26] MEDS: HYDROmorphone HCL INJ (*CRX) 1 MG/ML SYR IV PUSH ×3 (04:59→14:02)
[2023-02-26] MEDS: PIPERACILLN/TAZ 3.375GM/NS50ML 3.375 GM/50 ML BAG IVPB ×3 (04:59→17:19)
[2023-02-26] MEDS: ONDANSETRON INJ 4 MG/2 ML VIAL IV PUSH ×3 (05:01→14:03)
[2023-02-26 05:59] LABS: Hematocrit 36.9 % (37.0-47.0); Hemoglobin 12.1 g/dL (12.0-15.0); Mean Corpuscular HGB Conc 32.8 g/dl (32-36); Mean Corpuscular Hemoglobin 34.1 pg (26-34); Mean Corpuscular Volume 103.9 fl (80-100); Mean Platelet Volume 9.6 fl (7.4-10.4); Platelet Count Result 240 k/mm3 (150-375); Red Blood Count 3.55 M/mm3 (4.2-5.4); Red Cell Distribution Width 12.7 % (11.5-14.5); White Blood Count 4.8 K/mm3 (4.5-10.0)
[2023-02-26 06:00] VITALS: BP 123/74; PULSE 69; RESP 18; TEMP 36.4; O2SAT 99
[2023-02-26 06:31] LABS: Anion Gap 1 mmol/L (8-16); Blood Urea Nitrogen 8 mg/dL (7-17); Carbon Dioxide 26 mmol/L (22-30); Chloride 105 mmol/L (98-107); Estimated CRCL calculation 83 ml/min; Sodium 132 mmol/L (137-145)
[2023-02-26 06:32] LABS: Alanine Aminotransferase 40 U/L (6-35); Albumin Level 3.8 g/dL (3.5-5.1); Alkaline Phosphatase 62 U/L (38-126); Aspartate Amino Transferase 36 U/L (14-36); Bilirubin,Total 0.8 mg/dL (0.2-1.3); Calcium 8.3 mg/dL (8.4-10.2); Estimated Glomerular Filt Rate > 60; Glucose 101 mg/dL (65-110); Magnesium 2.1 mg/dL (1.6-2.3)
--- NOTE | 2023-02-26 08:39 | WPDCN ---
Assessment and Plan Assessment and plan (1) Cholecystitis with cholelithiasis: Code(s): K80.10 - Calculus of gallbladder with chronic cholecystitis without obstruction Status: Acute Assessment and Plan: The patient was admitted to the hospital with intractable right upper quadrant abdominal pain. Laboratory and imaging studies revealed no obvious evidence of acute cholecystitis at this time although that may be lagging behind her clinical picture. She has no fever and hemodynamically stable. Gallstones are noted on her abdominal ultrasound but her liver enzymes are still all normal. Recommend keep her NPO for right now and giving her IV antibiotics. We will treat her empirically for acute cholecystitis. She is on systemic anticoagulation with Pradaxa and that needs to be held. She would like to return to [place] to have any surgery of necessary but at this time it is not known whether that will be an option depending on whether she gets worse or gets better. Will follow continue to evaluate. HPI Data of Consult Date/Time: 02/26/23 08:39 Requesting Physician: Donnie Payne MD Primary Care Provider: OPERATIONS LIAISON PHYSICIAN Consult Narrative Reason for consult: Right upper quadrant abdominal pain and gallstones Narrative: Josue Barroso is a 47 year old female admitted through the emergency room with complaints of gradually worsening right upper quadrant abdominal pain associated with nausea and emesis. She states she has been having this pain for the past several months but more recently has been occurring almost every day. Pain seems to be worse with eating fatty foods. The pain does radiate to her upper back region. Occasionally she has stool urgency after eating. Workup in the emergency room shows that she had normal white blood cell count and normal liver enzymes. Total bilirubin 0.8. CT scan abdomen pelvis showed dilated gallbladder without pericholecystic fluid. Some scattered gallbladder wall calcifications were seen suggesting possible porcelain gallbladder. Abdominal ultrasound was then performed showing evidence of gallstones without gallbladder wall thickening. Common bile duct was of normal caliber. No evidence of acute cholecystitis was seen on the abdominal ultrasound. However the patient continued to have intractable right upper quadrant abdominal pain emergency room she was admitted to the hospital. She was given 3 doses of Dilaudid emergency room which did not get her pain free. The patient is visiting from [place] and she is questioning whether she can get over this episode of pain without surgery here locally and return to [place] for further evaluation of possible surgery for her gallbladder. Her home meds include Pradaxa for systemic anticoagulation. Review of Systems Review of Systems: The remainder of the review of systems to include constitutional, HEENT, cardiovascular, respiratory, GI, , integumentary, musculoskeletal, endocrine, immunologic, hematologic, psychiatric, and neurologic are all negative except for which is mentioned above in the HPI. [facility] Past Medical History Medical History Chronic anticoagulation Congestive heart failure Echocardiogram in February 2023 showed normal LV chamber dimension and systolic function with an estimated EF of 65 to 70% and grade 1 diastolic dysfunction. Hypertension Paroxysmal atrial fibrillation Tobacco abuse Surgical History Surgical History History of cardiac catheterization Negative per patient report. Social History Social History Social History: Surrogate medical decision maker: Louise Barroso, mother. Code status: Full code. Smoking status: Current every day smoker Tobacco type: cigarettes Alcohol intake: never Substance use: never Lack o
[2023-02-26 08:59] VITALS: O2SAT 99
[2023-02-26] MEDS: dilTIAZem HCL CD 240 MG CAP.24HR PO (09:00)
[2023-02-26] MEDS: PANTOPRAZOLE 40 MG TABLET PO (09:00)
[2023-02-26] MEDS: ISOSORBIDE MONONITRATE 60 MG TAB.ER.24H PO (09:00)
[2023-02-26] MEDS: GABAPENTIN 300 MG CAPSULE PO ×2 (09:01→17:19)
[2023-02-26] MEDS: ESCITALOPRAM OXALATE 10 MG TABLET 20 MG PO (09:01)
[2023-02-26 09:02] VITALS: PULSE 70
[2023-02-26] MEDS: lamoTRIgine 100 MG TABLET 300 MG PO (09:02)
[2023-02-26] MEDS: carvediloL 25 MG TABLET PO ×2 (09:02→17:19)
[2023-02-26] MEDS: POTASSIUM CHLORIDE 20 MEQ ER TABLET PO (09:02)
[2023-02-26] MEDS: SPIRONOLACTONE 25 MG TABLET PO (09:02)
[2023-02-26] MEDS: OLMESARTAN MEDOXOMIL 20 MG TABLET 40 MG PO (09:02)
[2023-02-26] MEDS: FUROSEMIDE 40 MG TABLET PO (09:02)
--- NOTE | 2023-02-26 09:02 | PM.IMPN ---
Progress Note: A&P Assessment and Plan (1) Cholecystitis with cholelithiasis: Code(s): K80.10 - Calculus of gallbladder with chronic cholecystitis without obstruction Status: Acute Assessment and Plan: RUQ ultrasound shows cholelithiasis with positive sonographic cee's sign Surgery consulted and recommendations are appreciate Clear liquids today and NPO at [place] for surgery 02/26 IVF @ [place] IV antibiotics Serial abdominal exams Daily labs (2) Hypertension: Code(s): I10 - Essential (primary) hypertension Status: Acute Assessment and Plan: Blood pressures reviewed and are stable. Slightly elevated on admission, likely related to pain. Home medications have been restarted (3) Paroxysmal atrial fibrillation: Code(s): I48.0 - Paroxysmal atrial fibrillation Status: Acute Assessment and Plan: Stable Holding anticoagulant due potential surgery SCDs for DVT prophylaxis. (4) Congestive heart failure: Qualifiers: Heart failure chronicity: chronic Heart failure type: diastolic Qualified Code(s): I50.32 - Chronic diastolic (congestive) heart failure Code(s): I50.9 - Heart failure, unspecified Status: Acute Assessment and Plan: Stable ECHO from 02/14/2023 Summary ? 1. Complete two-dimensional, color flow and Doppler transthoracic echocardiogram is performed. ? 2. Mild pulmonary hypertension, estimated pulmonary arterial systolic pressure is 36mmHg. ? 3. Left ventricular chamber dimension is normal. ? 4. Left ventricular systolic function is normal, estimated at 65-70%. ? 5. There is no increased left ventricular wall thickness. ? 6. The left ventricular diastolic function is grade I diastolic dysfunction. ? 7. There is no aortic valve stenosis. ? 8. There is trace mitral valve regurgitation. ? 9. There is mild tricuspid valve regurgitation. (5) Tobacco abuse: Code(s): Z72.0 - Tobacco use Status: Acute Assessment and Plan: Smoking cessation encouraged Subjective Date/time seen: 02/26/23 09:02 Interval history: HPI obtained from chart: This is a 47-year-old female smoker with congestive heart failure, hypertension, paroxysmal atrial fibrillation on anticoagulation, and other comorbidities who presented to the emergency department for evaluation of right-sided abdominal pain. The patient provides the following history. She is known to the hospitalist service from a recent admission about a week and a half ago with left chest wall pain radiating to the left jaw with nausea and diaphoresis. She was seen by Cardiology she ruled out for acute coronary syndrome by serial troponins and no new acute ischemic changes were noted on EKG. [place] state was reportedly negative. It was felt that her pain was musculoskeletal in etiology. Chest CT with contrast showed coronary calcifications and she was started on high-intensity statin. 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 Several days after discharge she developed right-sided abdominal pain radiating to the right flank, described as a dull ache. It seems to be worse with movement and better with rest. It has been nearly constant for the past 24 hours and she came in for evaluation. She has had similar symptoms in the past but never this severe. She denies fever, chills, sweats, nausea, vomiting, diarrhea, hematuria, and dysuria. CT of the abdomen and pelvis showed no acute abdominal abnormality and once again findings of a porcelain gallbladder. Abdominal ultrasound revealed cholelithiasis with positive sonographic Cee sign suspicious for cholecystitis. She is being admitted in this setting for pain control, IV antibiotics, and surgery consultation. 02/26: Patient seen this morning having clear liquids. She has recently spoke
--- NOTE | 2023-02-26 10:19 | PM.PNGS ---
Progress Note: A&P Assessment and Plan (1) Cholecystitis with cholelithiasis: Code(s): K80.10 - Calculus of gallbladder with chronic cholecystitis without obstruction Status: Acute Assessment and Plan: Blood cell count is normal and she is afebrile. For she still has significant right upper quadrant pain subjectively and on examination. I suspect she has some degree of acute cholecystitis even the initial imaging studies were negative for acute cholecystitis. I recommended we proceed with a laparoscopic cholecystectomy possible conversion open cholecystectomy tomorrow. She is on Pradaxa for AFib and her last dose was 2 days ago. We will wait 1 more day and try to proceed with laparoscopic cholecystectomy tomorrow. We will go ahead and give her clear liquids for now. Continue IV antibiotics. We will make her NPO at midnight. Risks, benefits, indications, and expected outcomes were discussed with the patient and/or family members. Specific risks to include bleeding and possible need for blood transfusion, infection, bile leak, injury to other organs, common bile duct injury, and conversion to open cholecystectomy has been discussed. I have answered all their questions and they agreed to proceed with surgery as outlined above. Subjective Subjective Date/Time Seen: 02/26/23 10:19 Interval history: Patient's labs have returned her white blood count still normal. Liver enzymes are normal as well. On examination she is still moderately tender right upper quadrant. No peritoneal signs noted. Does want to try some clear liquids today. Exam GI: Other: Abdomen is soft and obese. Moderate tenderness to palpation with some voluntary guarding the right upper quadrant. No generalized peritoneal signs. Objective Data Vital Signs Vital Signs: Vital Signs - 24 hr 02/25/23 10:45 02/25/23 11:16 02/25/23 11:17 Temperature 36.8 C Pulse Rate 83 Respiratory Rate 18 Blood Pressure 167/107 H Pulse Oximetry 100 97 100 Oxygen Delivery 02/25/23 11:34 02/25/23 14:00 02/25/23 20:00 Temperature 36.4 C Pulse Rate 70 Respiratory Rate 16 Blood Pressure 133/92 H Pulse Oximetry 100 100 Oxygen Delivery Room Air 02/25/23 22:00 02/26/23 06:00 02/26/23 09:02 Temperature 36.2 C L 36.4 C Pulse Rate 75 69 70 Respiratory Rate 16 18 Blood Pressure 149/97 H 123/74 Pulse Oximetry 100 99 Oxygen Delivery 02/26/23 08:59 Temperature Pulse Rate Respiratory Rate Blood Pressure Pulse Oximetry 99 Oxygen Delivery Room Air Intake/Output Intake/Output: Intake & Output 02/23/23 02/24/23 02/25/23 02/26/23 23:59 23:59 23:59 23:59 Intake Total 2100 1140 Balance 2100 1140 Meds/Results Medications: Active Medications Generic Name Dose Route Start Last Admin Trade Name Freq PRN Reason Stop Dose Admin Acetaminophen 650 mg 02/25/23 16:18 Acetaminophen 325 Mg Tablet PO Q6H PRN Mild Pain (1-3) or Fever Albuterol 2 puff 02/25/23 22:02 Albuterol Sulfate (*Sp) Aerosol 1 Puff INHALATION QID PRN Shortness Of Breath Or Wheezing Carvedilol 25 mg 02/25/23 22:10 02/26/23 09:02 Carvedilol 25 Mg Tablet PO 25 mg BID THERESA Administration Diltiazem HCl 240 mg 02/26/23 09:00 02/26/23 09:00 Diltiazem Hcl Cd 240 Mg Cap.24hr PO 240 mg DAILY THERESA Administration Escitalopram Oxalate 20 mg 02/26/23 09:00 02/26/23 09:01 Escitalopram Oxalate 10 Mg Tablet PO 20 mg DAILY THERESA Administration Furosemide 40 mg 02/26/23 09:00 02/26/23 09:02 Furosemide 40 Mg Tablet PO 40 mg DAILY THERESA Administration Gabapentin 300 mg 02/25/23 22:10 02/26/23 09:01 Gabapentin 300 Mg Capsule PO 300 mg BID THERESA Administration Heparin Sodium (Porcine) 5,000 units 02/26/23 14:00 Heparin Sodium 5,000 Units/Ml Vial SUB-Q Q8HR THERESA Hydromorphone HCl 1 mg 02/25/23 18:37 02/26/23 09:15 Hydromorphone Hcl Inj (*Crx) 1 Mg/Ml
[2023-02-26] MEDS: HEPARIN SODIUM 5,000 UNITS/ML VIAL 5000 UNITS SUB-Q ×2 (13:53→21:33)
[2023-02-26 14:00] VITALS: BP 164/98; PULSE 70; RESP 18; TEMP 36.5; O2SAT 100
[2023-02-26 17:19] VITALS: PULSE 70
--- NOTE | 2023-02-26 19:00 | PC.NURSE ---
On 02/26/23, the TIER IN, Kellie, provided care and completed [employer] documentation on this patient. I have reviewed the TIER IN's documentation and agree with the findings.
[2023-02-26 21:47] VITALS: BP 145/91; PULSE 60; RESP 16; TEMP 36.3; O2SAT 98
[2023-02-27] VITALS (20 sets, daily range): BP systolic 113–218; BP diastolic 65–125; PULSE 66–77; RESP 12–20; TEMP 36.2–37.4; O2SAT 98–100
[2023-02-27] MEDS: PIPERACILLN/TAZ 3.375GM/NS50ML 3.375 GM/50 ML BAG IVPB ×2 (01:05→06:00)
[2023-02-27] MEDS: LACTATED RINGERS 1,000 ML 100 ML IV CONT (01:41)
[2023-02-27] MEDS: HEPARIN SODIUM 5,000 UNITS/ML VIAL 5000 UNITS SUB-Q (06:00)
[2023-02-27] MEDS: HYDROmorphone HCL INJ (*CRX) 1 MG/ML SYR IV PUSH ×3 (06:04→22:12)
[2023-02-27] MEDS: ONDANSETRON INJ 4 MG/2 ML VIAL IV PUSH ×3 (06:04→22:15)
[2023-02-27 06:13] LABS: Basophils Percent Auto 0.6 % (0.2-1.2); Eosinophils Absolute Auto 0.1 K/mm3 (0-0.3); Hematocrit 36.7 % (37.0-47.0); Hemoglobin 12.6 g/dL (12.0-15.0); Immature Granulocyte Absolute 0.01 K/mm3 (0.00-0.031); Immature Granulocyte Percent A 0.2 % (0-0.5); Lymphocytes Absolute Auto 1.84 K/mm3 (0.9-3.2); Lymphocytes Percent Auto 35.5 % (18.3-44.2); Mean Corpuscular HGB Conc 34.3 g/dl (32-36); Mean Corpuscular Hemoglobin 34.2 pg (26-34); Mean Corpuscular Volume 99.7 fl (80-100); Mean Platelet Volume 9.7 fl (7.4-10.4); Monocytes Absolute Auto 0.3 K/mm3 (0.1-0.6); Neutrophils Percent Auto 56.7 % (45.5-73.1); Platelet Count Result 258 k/mm3 (150-375); Red Blood Count 3.68 M/mm3 (4.2-5.4); Red Cell Distribution Width 11.9 % (11.5-14.5); White Blood Count 5.2 K/mm3 (4.5-10.0)
[2023-02-27 06:23] LABS: INR 1.1; Prothrombin Time 14.4 Seconds (11.1-14.7)
[2023-02-27 06:25] LABS: Alanine Aminotransferase 37 U/L (6-35); Albumin Level 3.8 g/dL (3.5-5.1); Alkaline Phosphatase 65 U/L (38-126); Anion Gap 0 mmol/L (8-16); Aspartate Amino Transferase 27 U/L (14-36); Bilirubin,Total 0.6 mg/dL (0.2-1.3); Blood Urea Nitrogen 4 mg/dL (7-17); Calcium 8.7 mg/dL (8.4-10.2); Carbon Dioxide 27 mmol/L (22-30); Chloride 107 mmol/L (98-107); Estimated CRCL calculation 84 ml/min; Estimated Glomerular Filt Rate > 60; Glucose 101 mg/dL (65-110); Potassium 3.8 mmol/L (3.4-5.0); Sodium 134 mmol/L (137-145)
--- NOTE | 2023-02-27 07:07 | PM.IMPN ---
Progress Note: A&P Assessment and Plan (1) Cholecystitis with cholelithiasis: Code(s): K80.10 - Calculus of gallbladder with chronic cholecystitis without obstruction Status: Acute Assessment and Plan: RUQ ultrasound shows cholelithiasis with positive sonographic cee's sign Surgery consulted and recommendations are appreciate NPO at [place] for surgery 02/26 IV antibiotics Daily labs (2) Hypertension: Code(s): I10 - Essential (primary) hypertension Status: Acute Assessment and Plan: Blood pressures reviewed and are stable. Slightly elevated on admission, likely related to pain. Home medications have been restarted (3) Paroxysmal atrial fibrillation: Code(s): I48.0 - Paroxysmal atrial fibrillation Status: Acute Assessment and Plan: Stable Holding anticoagulant due potential surgery SCDs for DVT prophylaxis. (4) Congestive heart failure: Qualifiers: Heart failure chronicity: chronic Heart failure type: diastolic Qualified Code(s): I50.32 - Chronic diastolic (congestive) heart failure Code(s): I50.9 - Heart failure, unspecified Status: Acute Assessment and Plan: Stable ECHO from 02/14/2023 Summary ? 1. Complete two-dimensional, color flow and Doppler transthoracic echocardiogram is performed. ? 2. Mild pulmonary hypertension, estimated pulmonary arterial systolic pressure is 36mmHg. ? 3. Left ventricular chamber dimension is normal. ? 4. Left ventricular systolic function is normal, estimated at 65-70%. ? 5. There is no increased left ventricular wall thickness. ? 6. The left ventricular diastolic function is grade I diastolic dysfunction. ? 7. There is no aortic valve stenosis. ? 8. There is trace mitral valve regurgitation. ? 9. There is mild tricuspid valve regurgitation. (5) Tobacco abuse: Code(s): Z72.0 - Tobacco use Status: Acute Assessment and Plan: Smoking cessation encouraged Plan Surgery today for laparoscopic vs open cholecystectomy Subjective Date/time seen: 02/27/23 07:07 Interval history: HPI obtained from chart: This is a 47-year-old female smoker with congestive heart failure, hypertension, paroxysmal atrial fibrillation on anticoagulation, and other comorbidities who presented to the emergency department for evaluation of right-sided abdominal pain. The patient provides the following history. She is known to the hospitalist service from a recent admission about a week and a half ago with left chest wall pain radiating to the left jaw with nausea and diaphoresis. She was seen by Cardiology she ruled out for acute coronary syndrome by serial troponins and no new acute ischemic changes were noted on EKG. [place] state was reportedly negative. It was felt that her pain was musculoskeletal in etiology. Chest CT with contrast showed coronary calcifications and she was started on high-intensity statin. 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 Several days after discharge she developed right-sided abdominal pain radiating to the right flank, described as a dull ache. It seems to be worse with movement and better with rest. It has been nearly constant for the past 24 hours and she came in for evaluation. She has had similar symptoms in the past but never this severe. She denies fever, chills, sweats, nausea, vomiting, diarrhea, hematuria, and dysuria. CT of the abdomen and pelvis showed no acute abdominal abnormality and once again findings of a porcelain gallbladder. Abdominal ultrasound revealed cholelithiasis with positive sonographic Cee sign suspicious for cholecystitis. She is being admitted in this setting for pain control, IV antibiotics, and surgery consultation. 02/26: Patient seen this morning having clear liquids. She has recently s
--- NOTE | 2023-02-27 08:30 | PC.NURSE ---
To OR via bed.
--- NOTE | 2023-02-27 08:30 | PC.NURSE ---
To OR via bed.
--- NOTE | 2023-02-27 08:56 | WPDANESEPPF ---
Anes - Initial Pre Proc Eval Procedure: Operation Date: 02/27/23 09:30 Proposed Procedures p Laparoscopic Cholecystectomy - Noble Luis MD Date/Time: 02/27/23 08:56 Surgeon: Donnie Payne MD Pre Op Diagnosis: Porcelain Gallbladder w Intractable Abdominal Pain Patient Data Age: 47 Gender: F Height: 1.57 m Weight: 96.6 kg Last Vital Signs Temp 36.3 C L 02/27/23 06:00 Pulse 73 02/27/23 06:00 Resp 18 02/27/23 06:00 BP 169/94 H 02/27/23 06:00 Pulse Ox 100 02/27/23 06:00 O2 Del Method Room Air 02/26/23 09:00 Allergies Allergy/AdvReac Type Severity Reaction Status Date / Time ibuprofen AdvReac Nausea and Verified 02/25/23 08:51 Vomiting tramadol AdvReac Nausea and Verified 02/25/23 08:51 Vomiting Home Medications Medication Instructions Recorded Confirmed Type albuterol sulfate 90 mcg/actuation 2 puff inhalation QID PRN 02/13/23 02/25/23 History aerosol inhaler Shortness Of Breath Or Wheezing carvedilol 25 mg tablet (Coreg) 25 mg PO BID 02/13/23 02/25/23 History dabigatran etexilate 150 mg 150 mg PO BID 02/13/23 02/25/23 History capsule (Pradaxa) diltiazem HCl 240 mg 240 mg PO DAILY 02/13/23 02/25/23 History capsule,extended release 24 hr ergocalciferol (vitamin D2) 50,000 50,000 unit PO WEEKLY 02/13/23 02/25/23 History unit tablet escitalopram oxalate 20 mg tablet 20 mg PO DAILY 02/13/23 02/25/23 History furosemide 40 mg tablet (Lasix) 40 mg PO DAILY 02/13/23 02/25/23 History gabapentin 300 mg capsule 300 mg PO BID 02/13/23 02/25/23 History lamotrigine 100 mg tablet 300 mg PO DAILY 02/13/23 02/25/23 History (Lamictal) olmesartan 40 mg tablet 40 mg PO DAILY 02/13/23 02/25/23 History omeprazole 20 mg tablet,delayed 20 mg PO DAILY 02/13/23 02/25/23 History release potassium chloride 20 mEq 20 meq PO DAILY 02/13/23 02/25/23 History tablet,extended release spironolactone 25 mg tablet 25 mg PO DAILY 02/13/23 02/25/23 History isosorbide mononitrate 60 mg 60 mg PO DAILY 02/25/23 02/25/23 History tablet,extended release 24 hr Laboratory Tests 02/27/23 06:06 WBC 5.2 K/mm3 (4.5-10.0) RBC 3.68 L M/mm3 (4.2-5.4) Hgb 12.6 g/dL (12.0-15.0) Hct 36.7 L % (37.0-47.0) MCV 99.7 fl (80-100) MCH 34.2 H pg (26-34) MCHC 34.3 g/dl (32-36) RDW 11.9 % (11.5-14.5) Plt Count 258 k/mm3 (150-375) MPV 9.7 fl (7.4-10.4) Immature Gran % (Auto) 0.2 % (0-0.5) Neut % (Auto) 56.7 % (45.5-73.1) Lymph % (Auto) 35.5 % (18.3-44.2) [place] % (Auto) 6.0 % (2.6-8.5) Eos % (Auto) 1.0 % (0-4.4) Baso % (Auto) 0.6 % (0.2-1.2) Lymph # (Auto) 1.84 K/mm3 (0.9-3.2) [place] # (Auto) 0.3 K/mm3 (0.1-0.6) Eos # (Auto) 0.1 K/mm3 (0-0.3) Baso # (Auto) 0.0 K/mm3 (0.0-0.1) Abs Immat Gran (auto) 0.01 K/mm3 (0.00-0.031) Absolute Neuts (auto) 3.0 K/mm3 (1.3-6.7) Absolute Nucleated RBC 0.0 K/mm3 (0.0-0.012) Nucleated RBC % 0.0 % (0.0-0.2) PT 14.4 Seconds (11.1-14.7) INR 1.1 Sodium 134 L mmol/L (137-145) Potassium 3.8 mmol/L (3.4-5.0) Chloride 107 mmol/L (98-107) Carbon Dioxide 27 mmol/L (22-30) Anion Gap 0 L mmol/L (8-16) BUN 4 L mg/dL (7-17) Creatinine 0.80 mg/dL (0.7-1.0) Estim Creat Clear Calc 84 ml/min Estimated GFR > 60 (59 - ) Glucose 101 mg/dL (65-110) Calcium 8.7 mg/dL (8.4-10.2) Total Bilirubin 0.6 mg/dL (0.2-1.3) AST 27 U/L (14-36) ALT 37 H U/L (6-35) Alkaline Phosphatase 65 U/L (38-126) Total Protein 7.0 g/dL (6.3-8.2) Albumin 3.8 g/dL (3.5-5.1) Blood Type B Positive Antibody Screen Negative Patient hx anesthesia problems: none Family hx anesthesia problems: none Results Review: All pre-operative results and documents have been reviewed as part of the pre-operative evaluation. [facility] Past Medical History
--- NOTE | 2023-02-27 09:08 | WPDHPUPDATE1 ---
History and Physical Update Update Date/Time: 02/27/23 09:08 History and Physical has been reviewed, including an updated exam of the patient. There are NO changes in the patient's condition. Risks, benefits, and alternatives have been discussed and questions answered. Patient agrees to proceed with procedure.
[2023-02-27] MEDS: BUPivacaine HCL 0.5% PF 30 ML VIAL 20 ML INFILTRATE (09:38)
[2023-02-27] MEDS: LIDO 1%/EPINEPHRINE 1:100,000 20 ML VIAL INFILTRATE (09:38)
[2023-02-27] MEDS: LACTATED RINGERS 1,000 ML 30 ML IV CONT ×2 (10:20→11:14)
[2023-02-27] MEDS: fentaNYL CITRATE INJ (*CRX) 100 MCG/2 ML VIAL 25 MCG IV PUSH ×6 (11:18→12:19)
--- NOTE | 2023-02-27 11:19 | W.PM.PROC2 ---
Procedure Note - Detailed Date of Procedure 02/27/23 Pre-op Diagnosis Porcelain Gallbladder w Intractable Abdominal Pain Post-op Diagnosis Other (Cholecystitis secondary to cholelithiasis with calcification of gallbladder wall) Procedure Performed Laparoscopic fenestrated subtotal cholecystectomy Surgeon Noble Luis MD [employer] Sorensen Anesthesia General Indications Sandy is a 47-year-old female who was admitted to the hospital severe intra rectal right upper quadrant abdominal pain. She had workup which showed multiple gallstones and calcification of the gallbladder wall suggestive of possible porcelain gallbladder. She had no pericholecystic fluid and no elevated white blood cell count to suggest acute cholecystitis. She is being brought to the operating now for attempted laparoscopic cholecystectomy. Findings Patient had a decompressed chronically inflamed gallbladder with chronic thickening of the gallbladder wall. Multiple large gallstones were within the gallbladder compacted together and obstructing the cystic duct infundibulum. The gallbladder was shrunken down around all the gallstones and contracted. Description of Procedure After informed consent was obtained patient brought to the operating room where she was placed supine position general endotracheal anesthesia was administered. The abdomen was then prepped and draped usual sterile fashion. A time-out was then performed correctly identifying the patient as well as procedure to be performed. She was already on scheduled IV antibiotics. I entered the abdomen in left upper quadrant utilizing a 5mm Optiview port. Once inside the abdomen I insufflated to adequate to pneumoperitoneum of 15mmHg of CO2. Additional laparoscopic trocar ports then placed the periumbilical position as well as the epigastric position and right subcostal positions. Working through these ports I was able to identify the gallbladder and it was decompressed and contracted around multiple large gallstones. I attempted to hold the gallbladder wall near the dome and elevated the gallbladder however due to the contraction the gallbladder wall I was unable to hold onto the gallbladder wall with a laparoscopic grasper. Without grasping the gallbladder and I elevated the gallbladder in the right lobe of the liver to identify the infundibular gallbladder. It was very difficult to hold in this area at as well and so I decided to proceed with a laparoscopic subtotal fenestrated cholecystectomy. At this point I incised the gallbladder vertically starting at the infundibular gallbladder extending it towards the dome. This opened up the anterior wall the gallbladder and multiple large gallstones were then removed from the gallbladder lumen he utilizing the [place] dissect her and the large gallbladder stone forceps. When I had all the gallstones out of the main portion of the gallbladder I then milked 2 large gallstones out the infundibular gallbladder. All the gallstones and as much of the remnants as I could were removed from the abdomen. I then looked at the gallbladder remnant at the infundibulum and did not see any further gallstones. Did not see any large bile leak. At this point I continued resecting the anterior wall the gallbladder off of the liver flush with the surface of the liver. The anterior wall the gallbladder and the gallstones were sent to pathology for examination after placing them into an Endo-Catch bag to remove them from the abdomen. I then fulgurated the posterior wall the gallbladder with electrocautery to kill the mucosa. I looked once more the gallbladder wall remnant and there was no bile leak. I did not close the cystic duct opening or the gallbladder remnant. I then placed a 15 [place] round [place] drain through the most lateral 5mm trocar port site and secured at the skin with a 3-0 nylon suture. Intra-abdominally the drain was placed in the area more since pouch over the gallbla
[2023-02-27] MEDS: diphenhydrAMINE HCl INJ 50 MG/ML VIAL 12.5 MG IV PUSH (11:53)
[2023-02-27] MEDS: HYDROmorphone HCL INJ (*CRX) 1 MG/ML SYR 0.5 MG IV PUSH ×2 (11:55→12:09)
--- NOTE | 2023-02-27 13:00 | PC.NURSE ---
Back from OR via bed.
[2023-02-27] MEDS: dilTIAZem HCL CD 240 MG CAP.24HR PO (13:06)
[2023-02-27] MEDS: ISOSORBIDE MONONITRATE 60 MG TAB.ER.24H PO (13:07)
[2023-02-27] MEDS: lamoTRIgine 100 MG TABLET 300 MG PO (13:07)
[2023-02-27] MEDS: OLMESARTAN MEDOXOMIL 20 MG TABLET 40 MG PO (13:07)
[2023-02-27] MEDS: PANTOPRAZOLE 40 MG TABLET PO (13:07)
[2023-02-27] MEDS: SPIRONOLACTONE 25 MG TABLET PO (13:07)
[2023-02-27] MEDS: GABAPENTIN 300 MG CAPSULE PO ×2 (13:08→21:02)
[2023-02-27] MEDS: carvediloL 25 MG TABLET PO ×2 (13:08→21:02)
[2023-02-27] MEDS: ESCITALOPRAM OXALATE 10 MG TABLET 20 MG PO (14:08)
[2023-02-27] MEDS: hydrALAZINE HCL 20 MG/ML VIAL 10 MG IV PUSH (14:12)
--- NOTE | 2023-02-27 15:14 | PCPTNOTE ---
Attempted to see for PT evaluation, RN reports pts BP is 225/125 and has been for 2 hours. Shes she can not be seen at this time. Will continue to follow.
[2023-02-27] MEDS: oxyCODONE HCL (*CRX) 5 MG TAB IR PO ×2 (16:11→21:10)
--- NOTE | 2023-02-27 17:06 | WPDANESPN ---
Anes - Prog Note Post-Op Date/Time: 02/27/23 17:06 Cardiovascular status: normal Respiratory status: normal Airway patency: other (Called to Room 327. Pt with report of missing bottom tooth. Upon examination noted a cracked partial bottom right tooth. ) Mental status: baseline Post-Op hydration status: normal Vital Signs: Last Vital Signs Temp 36.4 C L 02/27/23 14:45 Pulse 77 02/27/23 14:45 Resp 12 02/27/23 14:45 BP 124/68 02/27/23 15:48 Pulse Ox 100 02/27/23 14:45 O2 Del Method Room Air 02/27/23 12:45 O2 Flow Rate 10 02/27/23 11:14 Pain Score (VAS): 310 I/O: Intake & Output 02/27/23 02/27/23 02/27/23 07:59 15:59 23:59 Intake Total 50 600 Output Total 50 Balance 50 550 Laboratory Tests 02/27/23 06:06 02/27/23 06:06 02/27/23 06:06 WBC 5.2 RBC 3.68 L Hgb 12.6 Hct 36.7 L MCV 99.7 MCH 34.2 H MCHC 34.3 RDW 11.9 Plt Count 258 MPV 9.7 Immature Gran % (Auto) 0.2 Neut % (Auto) 56.7 Lymph % (Auto) 35.5 [place] % (Auto) 6.0 Eos % (Auto) 1.0 Baso % (Auto) 0.6 Lymph # (Auto) 1.84 [place] # (Auto) 0.3 Eos # (Auto) 0.1 Baso # (Auto) 0.0 Abs Immat Gran (auto) 0.01 Absolute Neuts (auto) 3.0 Absolute Nucleated RBC 0.0 Nucleated RBC % 0.0 PT 14.4 INR 1.1 Sodium 134 L Potassium 3.8 Chloride 107 Carbon Dioxide 27 Anion Gap 0 L BUN 4 L Creatinine 0.80 Estim Creat Clear Calc 84 Estimated GFR > 60 Glucose 101 Calcium 8.7 Total Bilirubin 0.6 AST 27 ALT 37 H Alkaline Phosphatase 65 Total Protein 7.0 Albumin 3.8 Blood Type B Positive Antibody Screen Negative Microbiology 02/25/23 08:48 Urine Clean Catch Urine Culture - Final Escherichia Coli Post-procedural complaints: other (missing tooth) Patient Feedback: Patient satisfied with anesthetic care. Other Findings: Explained to patient no obvious reason for partial toots as induction and intubation were smooth and unremarkable. An oral airway was used on emergence with no obvious damage or bleeding noted to mouth. supervisor television chassis repair present and incident report filed per hospital policy.
[2023-02-28] VITALS (7 sets, daily range): BP systolic 96–133; BP diastolic 57–81; PULSE 68–74; RESP 16–20; TEMP 36.4–37.3; O2SAT 98–100
[2023-02-28] MEDS: HYDROmorphone HCL INJ (*CRX) 1 MG/ML SYR IV PUSH ×3 (01:12→09:39)
[2023-02-28] MEDS: ONDANSETRON INJ 4 MG/2 ML VIAL IV PUSH ×2 (04:46→09:39)
[2023-02-28 06:36] LABS: Basophils Percent Auto 0.1 % (0.2-1.2); Eosinophils Percent Auto 0.1 % (0-4.4); Hematocrit 34.5 % (37.0-47.0); Hemoglobin 11.7 g/dL (12.0-15.0); Immature Granulocyte Absolute 0.04 K/mm3 (0.00-0.031); Immature Granulocyte Percent A 0.4 % (0-0.5); Lymphocytes Absolute Auto 1.74 K/mm3 (0.9-3.2); Lymphocytes Percent Auto 15.9 % (18.3-44.2); Mean Corpuscular HGB Conc 33.9 g/dl (32-36); Mean Corpuscular Hemoglobin 34.5 pg (26-34); Mean Corpuscular Volume 101.8 fl (80-100); Mean Platelet Volume 9.9 fl (7.4-10.4); Monocytes Absolute Auto 0.8 K/mm3 (0.1-0.6); Monocytes Percent Auto 7.3 % (2.6-8.5); Neutrophils Absolute Auto 8.4 K/mm3 (1.3-6.7); Neutrophils Percent Auto 76.2 % (45.5-73.1); Platelet Count Result 252 k/mm3 (150-375); Red Blood Count 3.39 M/mm3 (4.2-5.4); Red Cell Distribution Width 12.3 % (11.5-14.5)
[2023-02-28 06:46] LABS: Alanine Aminotransferase 171 U/L (6-35); Alkaline Phosphatase 67 U/L (38-126); Anion Gap 4 mmol/L (8-16); Aspartate Amino Transferase 172 U/L (14-36); Bilirubin,Total 0.9 mg/dL (0.2-1.3); Blood Urea Nitrogen 5 mg/dL (7-17); Calcium 8.8 mg/dL (8.4-10.2); Carbon Dioxide 28 mmol/L (22-30); Chloride 103 mmol/L (98-107); Estimated CRCL calculation 88 ml/min; Estimated Glomerular Filt Rate > 60; Glucose 113 mg/dL (65-110); Potassium 3.6 mmol/L (3.4-5.0); Sodium 135 mmol/L (137-145)
--- NOTE | 2023-02-28 08:49 | PM.IMPN ---
Progress Note: A&P Assessment and Plan (1) Cholecystitis with cholelithiasis: Code(s): K80.10 - Calculus of gallbladder with chronic cholecystitis without obstruction Status: Acute Assessment and Plan: RUQ ultrasound shows cholelithiasis with positive sonographic cerda's sign Surgery consulted and recommendations are appreciate POD 1 laparoscopic cholecystectomy IV antibiotics stopped post op Daily labs (2) Hypertension: Code(s): I10 - Essential (primary) hypertension Status: Acute Assessment and Plan: Blood pressures reviewed and are stable. Slightly elevated on admission, likely related to pain. Blood pressures elevated post surgery but patient had not had her am medications. She received IV hydralazine x 1, home meds given, and pain addressed. Blood pressures now normalized. Home medications have been restarted Now hypotensive today. Will give 500 mL bolus and hold antihypertensives. (3) Paroxysmal atrial fibrillation: Code(s): I48.0 - Paroxysmal atrial fibrillation Status: Acute Assessment and Plan: Stable Lovenox and SCDs for DVT prophylaxis. (4) Congestive heart failure: Qualifiers: Heart failure chronicity: chronic Heart failure type: diastolic Qualified Code(s): I50.32 - Chronic diastolic (congestive) heart failure Code(s): I50.9 - Heart failure, unspecified Status: Acute Assessment and Plan: Stable ECHO from 02/14/2023 Summary ? 1. Complete two-dimensional, color flow and Doppler transthoracic echocardiogram is performed. ? 2. Mild pulmonary hypertension, estimated pulmonary arterial systolic pressure is 36mmHg. ? 3. Left ventricular chamber dimension is normal. ? 4. Left ventricular systolic function is normal, estimated at 65-70%. ? 5. There is no increased left ventricular wall thickness. ? 6. The left ventricular diastolic function is grade I diastolic dysfunction. ? 7. There is no aortic valve stenosis. ? 8. There is trace mitral valve regurgitation. ? 9. There is mild tricuspid valve regurgitation. (5) Tobacco abuse: Code(s): Z72.0 - Tobacco use Status: Acute Assessment and Plan: Smoking cessation encouraged Plan POD 1 tarah hinson Subjective Date/time seen: 02/28/23 08:49 Interval history: HPI obtained from chart: This is a 47-year-old female smoker with congestive heart failure, hypertension, paroxysmal atrial fibrillation on anticoagulation, and other comorbidities who presented to the emergency department for evaluation of right-sided abdominal pain. The patient provides the following history. She is known to the hospitalist service from a recent admission about a week and a half ago with left chest wall pain radiating to the left jaw with nausea and diaphoresis. She was seen by Cardiology she ruled out for acute coronary syndrome by serial troponins and no new acute ischemic changes were noted on EKG. [place] [address] [place] state was reportedly negative. It was felt that her pain was musculoskeletal in etiology. Chest CT with contrast showed coronary calcifications and she was started on high-intensity statin. 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 Several days after discharge she developed right-sided abdominal pain radiating to the right flank, described as a dull ache. It seems to be worse with movement and better with rest. It has been nearly constant for the past 24 hours and she came in for evaluation. She has had similar symptoms in the past but never this severe. She denies fever, chills, sweats, nausea, vomiting, diarrhea, hematuria, and dysuria. CT of the abdomen and pelvis showed no acute abdominal abnormality and once again findings of a porcelain gallbladder. Abdominal ultrasound revealed cholelithiasis with positive sonographic Mu
[2023-02-28] MEDS: OLMESARTAN MEDOXOMIL 20 MG TABLET 40 MG PO (09:35)
[2023-02-28] MEDS: POTASSIUM CHLORIDE 20 MEQ ER TABLET PO (09:35)
[2023-02-28] MEDS: lamoTRIgine 100 MG TABLET 300 MG PO (09:35)
[2023-02-28] MEDS: carvediloL 25 MG TABLET PO (09:35)
[2023-02-28] MEDS: SPIRONOLACTONE 25 MG TABLET PO (09:35)
[2023-02-28] MEDS: dilTIAZem HCL CD 240 MG CAP.24HR PO (09:35)
[2023-02-28] MEDS: FUROSEMIDE 40 MG TABLET PO (09:35)
[2023-02-28] MEDS: ENOXAPARIN 40 MG/0.4 ML SYRINGE SUB-Q (09:35)
[2023-02-28] MEDS: GABAPENTIN 300 MG CAPSULE PO ×2 (09:36→16:46)
[2023-02-28] MEDS: PANTOPRAZOLE 40 MG TABLET PO (09:36)
[2023-02-28] MEDS: ESCITALOPRAM OXALATE 10 MG TABLET 20 MG PO (09:36)
--- NOTE | 2023-02-28 09:36 | PCPTNOTE ---
Spoke with pt who states she moving about the room independently and has no therapy needs at this time. Spoke with hospitalist who OK DC of therapy orders at this time.
[2023-02-28] MEDS: SIMETHICONE 80 MG TAB.CHEW (11:26)
--- NOTE | 2023-02-28 14:21 | P.PNAN_ITS ---
Anes - Prog Note Post-Op Date/Time: 02/28/23 14:21 Cardiovascular status: normal Respiratory status: normal Mental status: baseline Post-Op hydration status: normal Vital Signs: Last Vital Signs Temp 36.4 C 02/28/23 08:00 Pulse 71 02/28/23 10:03 Resp 17 02/28/23 08:00 BP 128/80 02/28/23 10:03 Pulse Ox 98 02/28/23 10:03 O2 Del Method Room Air 02/27/23 12:45 O2 Flow Rate 10 02/27/23 11:14 Pain Score (VAS): Patient asleep at this time, no nonverbal signs of pain present I/O: Intake & Output 02/27/23 02/28/23 02/28/23 23:59 07:59 15:59 Intake Total 220 100 480 Output Total 85 30 Balance 135 100 450 Laboratory Tests 02/28/23 06:18 02/28/23 06:18 02/28/23 06:18 WBC 11.0 H RBC 3.39 L Hgb 11.7 L Hct 34.5 L MCV 101.8 H MCH 34.5 H MCHC 33.9 RDW 12.3 Plt Count 252 MPV 9.9 Immature Gran % (Auto) 0.4 Neut % (Auto) 76.2 H Lymph % (Auto) 15.9 L Candler % (Auto) 7.3 Eos % (Auto) 0.1 Baso % (Auto) 0.1 L Lymph # (Auto) 1.74 Candler # (Auto) 0.8 H Eos # (Auto) 0.0 Baso # (Auto) 0.0 Abs Immat Gran (auto) 0.04 H Absolute Neuts (auto) 8.4 H Absolute Nucleated RBC 0.0 Nucleated RBC % 0.0 Sodium 135 L Potassium 3.6 Chloride 103 Carbon Dioxide 28 Anion Gap 4 L BUN 5 L Creatinine 0.80 Estim Creat Clear Calc 88 Estimated GFR > 60 Glucose 113 H Calcium 8.8 Total Bilirubin 0.9 AST 172 H ALT 171 H Alkaline Phosphatase 67 Total Protein 7.0 Albumin 4.0 Post-procedural complaints: other (missing tooth) Patient Feedback: Patient satisfied with anesthetic care.
--- NOTE | 2023-02-28 16:39 | PM.PNGS ---
Progress Note: A&P Assessment and Plan (1) Cholecystitis with cholelithiasis: Code(s): K80.10 - Calculus of gallbladder with chronic cholecystitis without obstruction Status: Acute Assessment and Plan: Post-op day 1 from laparoscopic fenestrated subtotal cholecystectomy. She is still complaining of a significant amount of upper abdominal pain. Pain medication limited due to her drug allergies. Will continue PRN analgesics ordered and add scheduled 1,000 mg Tylenol overnight to see if this helps pain control. TUSHAR drain with mostly serosanguineous drainage, continue to monitor. There is a slight increase in her AST and ALT with her bilirubin normal. If she continues to have uncontrolled abdominal pain or there is more concern of a bile leak, then we may consider a HIDA scan tomorrow. Will continue to monitor and repeat labs again in the morning. Encouraged walking the halls at least three times daily. Plan I have discussed the patient's case and plan of care with Dr. Luis. Subjective Subjective Date/Time Seen: 02/28/23 11:39 Post Op day: 1 (Laparoscopic fenestrated subtotal cholecystectomy) Patient reports: still having pain, voiding w/o difficulty, no flatus, no bowel movement and afebrile Interval history: Chart reviewed. Patient appears uncomfortable and reports this is related to her abdominal pain. Reports having abdominal pain going across her entire upper abdomen before and after surgery. Her pain has not improved. She is getting little relief from current analgesics. She has not had any oral analgesics since 9:00 p.m. last night, but has been receiving the IV Dilaudid about every 3-4 hours. She has nausea immediately after having delighted and has received Zofran with each dose of Dilaudid. No nausea or vomiting otherwise. She is able to tolerate little amounts of food. She had some fruit for breakfast. No other complaints at this time. Labs [place] [address] and her AST and ALT went up slightly to 172 and 171. SHe is able to tolerate her diet but has eaten very little due to the abdominal pain. Review of Systems Constitutional: Constitutional: Reports no additional constitutional complaints, Denies chills, Denies fever(s) and Denies weakness Cardiovascular: Cardiovascular: Reports no additional cardiovascular complaints, Denies chest pain and Denies pedal edema Respiratory: Respiratory: Reports no additional respiratory complaints, Denies cough and Denies dyspnea Gastrointestinal: Gastrointestinal: Reports as per HPI and Reports no additional gastrointestinal complaints Genitourinary: Genitourinary: Reports no additional female genitourinary complaints Exam Const: General: acute distress mild (Due to abdominal pain) and uncomfortable Orientation/consciousness: patient oriented x3 Resp: Effort & Inspection: normal respiratory effort Auscultation: clear to auscultation bilaterally Cardio: Rate: regular rate Rhythm: regular rhythm GI: Inspection: non-distended, incision (Trocar site incisions healing well with scant serosang. drainage at LUQ inc) and other (No erythema or swelling around incisions) GI Palp: Yes Soft to palpation, Yes Tenderness to palpation present (GI) (very tender across upper abdomen) and Yes Other GI palpation findings present Auscultation: Hypoactive bowel sounds present Other: TUSHAR drain with mostly serosanguineous drainage, possibly slight tinge of bile, gauze dressing dry and intact with no erythema of skin around TUSHAR drain. Extrem: General: no calf tenderness and no edema Psych: Mental Status: mental status grossly normal Insight: Good insight present (Psych) Judgement: Good judgement present (Psych) Objective Data Vital Signs Vital Signs: Vital Signs - 24 hr 02/27/23 20:00 02/27/23 21:02 02/27/23 23:57 Temperature 98.5 F 98.8 F Pulse Rate 73 76 71 Respiratory Rate 20 20 Blood Pressure 113/70 122/65 Pulse Oximetry 100 99
[2023-02-28] MEDS: SIMETHICONE 80 MG TAB.CHEW PO (16:45)
[2023-02-28] MEDS: KETOROLAC 30 MG/ML VIAL (*BKC) IV PUSH (16:45)
[2023-02-28] MEDS: LACTATED RINGERS 1,000 ML 500 ML IV CONT (16:51)
[2023-02-28] MEDS: ACETAMINOPHEN 500 MG TABLET 1000 MG PO (17:04)
[2023-02-28] MEDS: oxyCODONE HCL (*CRX) 5 MG TAB IR PO (21:18)
[2023-03-01 04:00] VITALS: PULSE 75; RESP 18; TEMP 35.9; O2SAT 100
[2023-03-01] MEDS: HYDROmorphone HCL INJ (*CRX) 1 MG/ML SYR IV PUSH (05:19)
[2023-03-01] MEDS: SIMETHICONE 80 MG TAB.CHEW PO ×3 (05:20→15:54)
[2023-03-01] MEDS: ONDANSETRON INJ 4 MG/2 ML VIAL IV PUSH (05:20)
[2023-03-01 05:38] VITALS: BP 178/118
[2023-03-01] MEDS: hydrALAZINE HCL 20 MG/ML VIAL IV PUSH (05:38)
[2023-03-01 06:28] VITALS: BP 145/89; PULSE 79; RESP 18; O2SAT 99
[2023-03-01 06:32] LABS: Mean Corpuscular HGB Conc 34.3 g/dl (32-36); Mean Corpuscular Hemoglobin 34.6 pg (26-34); Mean Corpuscular Volume 100.9 fl (80-100); Mean Platelet Volume 10.1 fl (7.4-10.4); Platelet Count Result 257 k/mm3 (150-375); Red Blood Count 3.47 M/mm3 (4.2-5.4); Red Cell Distribution Width 12.4 % (11.5-14.5); White Blood Count 9.6 K/mm3 (4.5-10.0)
[2023-03-01 06:45] LABS: Alanine Aminotransferase 198 U/L (6-35); Albumin Level 4.1 g/dL (3.5-5.1); Alkaline Phosphatase 64 U/L (38-126); Anion Gap 7 mmol/L (8-16); Aspartate Amino Transferase 134 U/L (14-36); Blood Urea Nitrogen 6 mg/dL (7-17); Calcium 9.1 mg/dL (8.4-10.2); Carbon Dioxide 27 mmol/L (22-30); Chloride 104 mmol/L (98-107); Estimated CRCL calculation 78 ml/min; Estimated Glomerular Filt Rate > 60; Glucose 112 mg/dL (65-110); Potassium 3.8 mmol/L (3.4-5.0); Sodium 138 mmol/L (137-145)
[2023-03-01 08:00] VITALS: BP 129/78; PULSE 77; RESP 20; TEMP 37.3; O2SAT 99
[2023-03-01] MEDS: dilTIAZem HCL CD 240 MG CAP.24HR PO (09:07)
[2023-03-01] MEDS: ESCITALOPRAM OXALATE 10 MG TABLET 20 MG PO (09:07)
[2023-03-01] MEDS: ENOXAPARIN 40 MG/0.4 ML SYRINGE SUB-Q (09:07)
[2023-03-01] MEDS: lamoTRIgine 100 MG TABLET 300 MG PO (09:07)
[2023-03-01] MEDS: POTASSIUM CHLORIDE 20 MEQ ER TABLET PO (09:08)
[2023-03-01] MEDS: GABAPENTIN 300 MG CAPSULE PO ×2 (09:08→16:26)
[2023-03-01] MEDS: PANTOPRAZOLE 40 MG TABLET PO (09:08)
--- NOTE | 2023-03-01 09:10 | PM.IMPN ---
Progress Note: A&P Assessment and Plan (1) Cholecystitis with cholelithiasis: Code(s): K80.10 - Calculus of gallbladder with chronic cholecystitis without obstruction Status: Acute Assessment and Plan: RUQ ultrasound shows cholelithiasis with positive sonographic cee's sign Surgery consulted and recommendations are appreciate POD 1 laparoscopic cholecystectomy IV antibiotics stopped post op Daily labs (2) Hypertension: Code(s): I10 - Essential (primary) hypertension Status: Acute Assessment and Plan: Blood pressures reviewed and are stable. Slightly elevated on admission, likely related to pain. Blood pressures elevated post surgery but patient had not had her am medications. She received IV hydralazine x 1, home meds given, and pain addressed. Blood pressures now normalized. Home medications have been restarted Blood pressures have normalized (3) Paroxysmal atrial fibrillation: Code(s): I48.0 - Paroxysmal atrial fibrillation Status: Acute Assessment and Plan: Stable Lovenox and SCDs for DVT prophylaxis. (4) Congestive heart failure: Qualifiers: Heart failure chronicity: chronic Heart failure type: diastolic Qualified Code(s): I50.32 - Chronic diastolic (congestive) heart failure Code(s): I50.9 - Heart failure, unspecified Status: Acute Assessment and Plan: Stable ECHO from 02/14/2023 Summary ? 1. Complete two-dimensional, color flow and Doppler transthoracic echocardiogram is performed. ? 2. Mild pulmonary hypertension, estimated pulmonary arterial systolic pressure is 36mmHg. ? 3. Left ventricular chamber dimension is normal. ? 4. Left ventricular systolic function is normal, estimated at 65-70%. ? 5. There is no increased left ventricular wall thickness. ? 6. The left ventricular diastolic function is grade I diastolic dysfunction. ? 7. There is no aortic valve stenosis. ? 8. There is trace mitral valve regurgitation. ? 9. There is mild tricuspid valve regurgitation. (5) Tobacco abuse: Code(s): Z72.0 - Tobacco use Status: Acute Assessment and Plan: Smoking cessation encouraged Plan POD 2 lap joya Subjective Date/time seen: 03/01/23 09:10 Interval history: HPI obtained from chart: This is a 47-year-old female smoker with congestive heart failure, hypertension, paroxysmal atrial fibrillation on anticoagulation, and other comorbidities who presented to the emergency department for evaluation of right-sided abdominal pain. The patient provides the following history. She is known to the hospitalist service from a recent admission about a week and a half ago with left chest wall pain radiating to the left jaw with nausea and diaphoresis. She was seen by Cardiology she ruled out for acute coronary syndrome by serial troponins and no new acute ischemic changes were noted on EKG. [place] [address] state was reportedly negative. It was felt that her pain was musculoskeletal in etiology. Chest CT with contrast showed coronary calcifications and she was started on high-intensity statin. 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 Several days after discharge she developed right-sided abdominal pain radiating to the right flank, described as a dull ache. It seems to be worse with movement and better with rest. It has been nearly constant for the past 24 hours and she came in for evaluation. She has had similar symptoms in the past but never this severe. She denies fever, chills, sweats, nausea, vomiting, diarrhea, hematuria, and dysuria. CT of the abdomen and pelvis showed no acute abdominal abnormality and once again findings of a porcelain gallbladder. Abdominal ultrasound revealed cholelithiasis with positive sonographic Cee sign suspicious for cholecystitis. She
[2023-03-01] MEDS: oxyCODONE HCL (*CRX) 5 MG TAB IR PO ×2 (09:14→15:55)
[2023-03-01 12:00] VITALS: BP 143/77; PULSE 86; RESP 18; TEMP 37.2; O2SAT 95
--- NOTE | 2023-03-01 13:58 | PM.DS ---
DS: Admitting Diagnosis Discharge Date TuesdayMarch 01 Admitting Diagnosis Acute cholecystitis DS: Discharge Diagnosis Discharge Diagnosis (1) Cholecystitis with cholelithiasis: Code(s): K80.10 - Calculus of gallbladder with chronic cholecystitis without obstruction Status: Acute Assessment and Plan: RUQ ultrasound shows cholelithiasis with positive sonographic cerda's sign Surgery consulted and recommendations are appreciate POD 1 laparoscopic cholecystectomy IV antibiotics stopped post op Daily labs (2) Hypertension: Code(s): I10 - Essential (primary) hypertension Status: Acute Assessment and Plan: Blood pressures reviewed and are stable. Slightly elevated on admission, likely related to pain. Blood pressures elevated post surgery but patient had not had her am medications. She received IV hydralazine x 1, home meds given, and pain addressed. Blood pressures now normalized. Home medications have been restarted Blood pressures have normalized (3) Paroxysmal atrial fibrillation: Code(s): I48.0 - Paroxysmal atrial fibrillation Status: Acute Assessment and Plan: Stable Lovenox and SCDs for DVT prophylaxis. (4) Congestive heart failure: Qualifiers: Heart failure chronicity: chronic Heart failure type: diastolic Qualified Code(s): I50.32 - Chronic diastolic (congestive) heart failure Code(s): I50.9 - Heart failure, unspecified Status: Acute Assessment and Plan: Stable ECHO from 02/14/2023 Summary ? 1. Complete two-dimensional, color flow and Doppler transthoracic echocardiogram is performed. ? 2. Mild pulmonary hypertension, estimated pulmonary arterial systolic pressure is 36mmHg. ? 3. Left ventricular chamber dimension is normal. ? 4. Left ventricular systolic function is normal, estimated at 65-70%. ? 5. There is no increased left ventricular wall thickness. ? 6. The left ventricular diastolic function is grade I diastolic dysfunction. ? 7. There is no aortic valve stenosis. ? 8. There is trace mitral valve regurgitation. ? 9. There is mild tricuspid valve regurgitation. (5) Tobacco abuse: Code(s): Z72.0 - Tobacco use Status: Acute Assessment and Plan: Smoking cessation encouraged Plan POD 2 lap joya DS: Summary Hospital Course Hospital Course: Interval history: HPI obtained from chart: This is a 47-year-old female smoker with congestive heart failure, hypertension, paroxysmal atrial fibrillation on anticoagulation, and other comorbidities who presented to the emergency department for evaluation of right-sided abdominal pain. The patient provides the following history. She is known to the hospitalist service from a recent admission about a week and a half ago with left chest wall pain radiating to the left jaw with nausea and diaphoresis. She was seen by Cardiology she ruled out for acute coronary syndrome by serial troponins and no new acute ischemic changes were noted on EKG. [place] was reportedly negative. It was felt that her pain was musculoskeletal in etiology. Chest CT with contrast showed coronary calcifications and she was started on high-intensity statin. 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 Several days after discharge she developed right-sided abdominal pain radiating to the right flank, described as a dull ache. It seems to be worse with movement and better with rest. It has been nearly constant for the past 24 hours and she came in for evaluation. She has had similar symptoms in the past but never this severe. She denies fever, chills, sweats, nausea, vomiting, diarrhea, hematuria, and dysuria. CT of the abdomen and pelvis showed no acute abdominal abnormality and once again findings of a porcelain gallbladder. Abdomin
--- NOTE | 2023-03-01 14:13 | PM.PNGS ---
Progress Note: A&P Assessment and Plan (1) Cholecystitis with cholelithiasis: Code(s): K80.10 - Calculus of gallbladder with chronic cholecystitis without obstruction Status: Acute Assessment and Plan: Post-op day 2 from laparoscopic fenestrated subtotal cholecystectomy. Abdominal pain is more controlled today. WBC normal today and her LFTs were essentially unchanged. Her TUSHAR drain appears to have some possible bile-tinged serosanguineous drainage. Will keep her TUSHAR drain in place a few more days. Okay from our standpoint to discharge the patient today. Will give her 7 days of ciprofloxacin on discharge. We will have her follow-up with Dr. Luis on in our office to reassess the TUSHAR drain and possibly remove the drain at that time. Hold her Pradaxa until after her drain is removed in our office. Plan I have discussed the patient's case and plan of care with Dr. Luis. Subjective Subjective Date/Time Seen: 03/01/23 14:13 Patient reports: no new complaints, feels better, pain is less, tolerating a regular diet (low fat), voiding w/o difficulty, flatus, no bowel movement and afebrile Interval history: Patient doing better today. She reports her pain has been better controlled. She did receive IV Dilaudid once around 5 am this morning, but had not had any pain medication since 10 pm last night. She has since taken the oxycodone and feels that is controlling her upper abdominal pain better. She is sitting up in the chair and has been ambulating again today. She is eager to go home. She had 40 cc out of her TUSHAR drain when emptied this morning from overnight. WBC normal today and LFTs essentially unchanged. Review of Systems Review of Systems: ROS unchanged except as noted above Exam Const: General: comfortable and no acute distress Orientation/consciousness: patient oriented x3 GI: Inspection: non-distended, incision (trochar incisions healing well with glue intact, no erythema or drainage) and other (TUSHAR drain with bile-tinged serosanguineous drainage) GI Palp: Yes Soft to palpation and Yes Tenderness to palpation present (GI) (tenderness across her upper abdomen) Auscultation: normal bowel sounds Extrem: General: no calf tenderness and no edema Psych: Insight: Good insight present (Psych) Judgement: Good judgement present (Psych) Objective Data Vital Signs Vital Signs: Vital Signs - 24 hr 02/28/23 20:00 03/01/23 05:38 03/01/23 04:00 Temperature 97.8 F 96.6 F L Pulse Rate 74 75 Respiratory Rate 16 18 Blood Pressure 119/81 178/118 H Pulse Oximetry 98 100 Oxygen Delivery 03/01/23 06:28 03/01/23 08:00 03/01/23 12:00 Temperature 99.2 F 99.0 F Pulse Rate 79 77 86 Respiratory Rate 18 20 18 Blood Pressure 145/89 H 129/78 143/77 H Pulse Oximetry 99 99 95 Oxygen Delivery 03/01/23 09:05 Temperature Pulse Rate Respiratory Rate Blood Pressure Pulse Oximetry Oxygen Delivery Room Air Intake/Output Intake/Output: Intake & Output 02/26/23 02/27/23 02/28/23 03/01/23 23:59 23:59 23:59 23:59 Intake Total 3160 870 1500 250 Output Total 135 30 40 Balance 3160 735 1470 210 Meds/Results Medications: Active Medications Generic Name Dose Route Start Last Admin Trade Name Freq PRN Reason Stop Dose Admin Acetaminophen 1,000 mg 03/01/23 13:53 Acetaminophen 500 Mg Tablet PO Q6H PRN Pain Rated 1-10 Albuterol 2 puff 02/25/23 22:02 Albuterol Sulfate (*Sp) Aerosol 1 Puff INHALATION QID PRN Shortness Of Breath Or Wheezing Carvedilol 25 mg 02/25/23 22:10 02/28/23 09:35 Carvedilol 25 Mg Tablet PO 25 mg BID THERESA Administration Diltiazem HCl 240 mg 02/26/23 09:00 03/01/23 09:07 Diltiazem Hcl Cd 240 Mg Cap.24hr PO 240 mg DAILY THERESA Administration Enoxaparin Sodium 40 mg 02/28/23 09:00 03/01/23 09:07 Enoxaparin 40 Mg/0.4 Ml Syringe SUB-Q 40 mg DAILY THERESA Administration Escitalopram Oxalate 20 mg 02/26/23 09
[2023-03-01] MEDS: ACETAMINOPHEN 500 MG TABLET 1000 MG PO (15:54)
[2023-03-01 16:00] VITALS: BP 124/68; PULSE 79; RESP 18; TEMP 37.6; O2SAT 100
== END 2023-03-01 17:00 | disposition home or self-care (01) | DRG 263 ==
LOC: ANHED 12:05 → ANH3MEDSUR 12:19
PROVIDERS: Nurse Practitioner Family; Physician Assistant; Surgery; Admitting Provider Chiropractor; Emergency Provider Emergency Medicine; Visit Provider Nurse Practitioner Acute Care
PROC: 0FT44ZZ Resection of Gallbladder, Percutaneous Endoscopic Approach (ICD-10-PCS; CPT 47562; principal; 2023-02-27 09:30)
DX: K80.10 Calculus of gallbladder with chronic cholecystitis without obstruction (principal); I11.0 Hypertensive heart disease with heart failure; I50.32 Chronic diastolic (congestive) heart failure; E66.9 Obesity, unspecified; K82.8 Other specified diseases of gallbladder; F17.210 Nicotine dependence, cigarettes, uncomplicated; I10 Essential (primary) hypertension; I48.0 Paroxysmal atrial fibrillation; Z79.01 Long term (current) use of anticoagulants; Z68.41 Body mass index [BMI] 40.0-44.9, adult
CPT/HCPCS: 36415; 74177; 76705; 80053; 81001; 81025; 83690; 83735; 85025; 85027; 85610; 86850; 86900; 86901; 87077; 87086; 87088; 87186; 88304; 96361; 96374; 96375; 96376; 99285; A9270; C1713; J0360; J1100; J1170; J1200; J1644; J1650; J1885; J2250; J2405; J2543; J2704; J2710; J3010; J7030; J7120; Q9967

== ENCOUNTER 2023-03-04 14:17 | Outpatient (CLI) | payer MEDICAID, SELFPAY ==
--- NOTE | ~2023-03-04 | NM_ITS ---
EXAMINATION: NM hepatobiliary wo pharm DATE: 03/04/2023 15:42 INDICATION: Abdominal pain. COMPARISON: CT abdomen and pelvis 02/25/2023 TECHNIQUE: 4.6 mCi Tc-99m mebrofenin (Choletec) was administered intravenously. Scintigraphic images of the abdomen were obtained for one hour. FINDINGS: There is normal clearance of radiotracer from the blood pool. There is homogeneous tracer u ptake by the liver. Activity progresses to the bowel. IMPRESSION: 1. No bile leak. Reviewed, dictated and finalized at location E. IMPRESSION: 1. No bile leak.
== END 2023-03-04 14:18 | disposition home or self-care (01) ==
LOC: ANHIMG 14:30
DX: K82.8 Other specified diseases of gallbladder (principal); R10.10 Upper abdominal pain, unspecified
CPT/HCPCS: 78226; A9537

== ENCOUNTER 2023-05-27 10:16 | Emergency (ER) | payer MEDICAID, SELFPAY | END 2023-05-27 10:45 | disposition left against medical advice (07) | DX: Z53.21 Procedure and treatment not carried out due to patient leaving prior to being seen by health care provider (principal) | CPT/HCPCS: 99199 ==